=== PATIENT | female | born 2005 | race Caucasian/White ===

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

== ENCOUNTER 2024-04-02 11:27 | Emergency (ER) | payer BC, SELFPAY ==
[2024-04-02 11:58] VITALS: BP 112/73; PULSE 117; RESP 14; TEMP 36.7; O2SAT 98
[2024-04-02 12:28] VITALS: BP 112/73; PULSE 117; RESP 14; TEMP 36.7; O2SAT 98
[2024-04-02] MEDS: Ondansetron O.D.T. 4 MG TABEF 8 MG PO (12:30)
[2024-04-02] MEDS: Dexamethasone 4 MG TAB 8 MG PO (12:30)
[2024-04-02] MEDS: Acetaminophen 500 MG TAB 1000 MG PO (12:31)
[2024-04-02 12:38] VITALS: BP 115/62; PULSE 93; RESP 15; O2SAT 100
--- NOTE | 2024-04-02 16:29 | W.ED.GENAD ---
Discharge Plan Disposition Patient Disposition: Home Condition: Stable Discharge Details Clinical Impression: Strep pharyngitis Primary Care Provider: Alonzo Rodriguez ED Provider: Harmeet Velazquez Home Meds and New Rx's Prescriptions: New cephalexin 500 mg capsule 500 mg PO BID 10 Days Qty: 20 0RF No Action triamcinolone acetonide 0.1 % cream 1 applic topical BID Qty: 30 0RF Kyleena 17.5 mcg/24 hrs (5 yrs) 19.5 mg intrauterine device 1 device intrauterine ONCE Qty: 1 0RF Rx Instructions: as a single dose acetaminophen 500 mg Tablet 1,000 mg PO Q6H PRN Discharge Instructions Instructions: Strep Throat ED Additional Instructions: Your strep throat test today is positive. A prescription for antibiotics has been sent to the pharmacy. Please take the complete dose of this medication. Return if you have worsening symptoms, drooling, difficulty breathing, swallowing or change in voice. HPI General Date/Time Provider Initiated Documentation: 04/02/24 12:05. Limitations to Documentation: no limitations. Information obtained by: patient. HPI Narrative: 18-year-old female without significant past medical history presents for evaluation of sore throat. She reports that symptoms have been ongoing for 2 days. Subjective fever at home. No associated other symptoms of runny nose or cough. Did have some nausea this morning and spit up some bile. She reports throat hurts worse with swallowing, no difficulty with swallowing, no significant change in voice or difficulty breathing. Related Data Home Medications ?Medication ?Instructions ?Recorded ?Confirmed levonorgestrel 17.5 mcg/24 hr (up 1 device intrauterine ONCE #1 ea 05/13/21 04/02/24 to 5 yrs) 19.5mg intrauterine device (Kyleena) acetaminophen 500 mg tablet 1,000 mg PO Q6H PRN 11/07/21 04/02/24 triamcinolone acetonide 0.1 % 1 applic topical BID #30 grams 12/12/23 04/02/24 topical cream cephalexin 500 mg capsule 500 mg PO BID 10 days #20 caps 04/02/24 Previous Rx's ?Medication ?Instructions ?Recorded levonorgestrel 17.5 mcg/24 hr (up 1 device intrauterine ONCE #1 ea 05/13/21 to 5 yrs) 19.5mg intrauterine device (Kyleena) triamcinolone acetonide 0.1 % 1 applic topical BID #30 grams 12/12/23 topical cream cephalexin 500 mg capsule 500 mg PO BID 10 days #20 caps 04/02/24 Allergies Allergy/AdvReac Type Severity Reaction Status Date / Time amoxicillin (Amoxicillin) Allergy Mild rash/unknown/family Verified 04/02/24 12:02 hx General Stated Complaint: Sorethroat TRE: 4 Exam Narrative Exam Narrative: Review of Systems: All systems reviewed & are unremarkable except as noted in HPI and below Well-developed, no acute distress Afebrile Cervical adenopathy noted Tonsillar enlargement bilaterally with erythematous tonsils, no appreciable exudates noted RRR Unlabored respiratory effort clear bilaterally Course Vital Signs Vital signs: Vital Signs Temperature 36.7 C 04/02/24 11:58 Pulse 117 H 04/02/24 11:58 Respiratory Rate 14 04/02/24 11:58 Blood Pressure 112/73 04/02/24 11:58 Pulse Oximetry 98 04/02/24 11:58 Temperature 36.7 C 04/02/24 12:28 Temperature Source Oral 04/02/24 12:28 Pulse 93 H 04/02/24 12:38 Respiratory Rate 15 04/02/24 12:38 Blood Pressure 115/62 04/02/24 12:38 Blood Pressure Position Sitting 04/02/24 12:28 Pulse Oximetry 100 04/02/24 12:38 Oxygen Delivery Method Room Air 04/02/24 12:28 Oxygen Flow Rate 0 04/02/24 12:28 Pain Level 7 04/02/24 12:28 Lab/Test Results Lab/Test Results: POC Strep Test-ABILIO(Rapid) Start: 04/02/24 12:06 Freq: .Rapid Strep Test Status: Active Protocol: Document 04/02/24 12:15 TAYLOR (Rec: 04/02/24 12:15 TAYLOR [id number]) Strep test-ABILIO(Rapid)-POC POC-Strep test-ABILIO (Rapid) Positive POC-Strep test-ABILIO (Rapid) Positive Medical Decision Making Emergent evaluation of sore throat. 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 [id number] strep test is positive. Patient has an documented allergy to amoxicillin so we will treat with cephalexin. Also given Zofran and a dose of steroid in the emergency department. Return precautions advised. Recommend follow-up with PCP as needed. Quality:SDOH Health Related Social Needs: Health related social needs details N/A PFSH All Active Problems (Updated 04/02/24 @ 12:17 by Harmeet Velazquez MD) Strep pharyngitis (Acute) Thoughts of self harm (Acute) Anxiety (Chronic) Allergic rhinitis (Acute) Medical History (Updated 04/02/24 @ 12:17 by Harmeet Velazquez MD) IUD (intrauterine device) in place 04/2021. Kyleena. Contraception 12/2019. Nexplanon inserted. 04/2020. Nexplanon removed. OCPs started. 04/2021. OCP stopped. Kyleena IUD inserted Abnormal uterine bleeding (AUB) 2mo after insertion 6w of daily bleeding. Acute otitis media of left ear in pediatric patient Strep throat has frequently over the years Family History Mother Diabetes Asthma Depression Father Essential hypertension Asthma Hyperlipidemia Sister Asthma Substance use disorder Depression Brother Depression Maternal Grandmother Diabetes Maternal Grandfather Alcohol use disorder Cancer Paternal Grandfather Diabetes Heart disease Hyperlipidemia Essential hypertension Stroke Social History (Updated 10/05/23 @ 12:09 by Lashawn Toro) Smoking/Tobacco Use Status: Never Second Hand Exposure: Yes Smoking risk assessment performed?: Yes Alcohol Intake: never Drug use: Socially Substance use type: marijuana Details: marijuana use monthly, usually edibles Adopted: No Caregiver/Support person: No Foster care: No Household members: significant other Housing: house Number of Children: 0 Communication Needs: Corrective Lenses Education Level: high school Details: 12th grade Do you need help understanding health information?: Never 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 Pets and animals: Yes (4 dogs an 4 cats) Pets and animals: cat(s) and dog(s) Sexually active: Yes Do you think of yourself as: straight/heterosexual Current gender identity: female What is your relationship status?: living with partner How often do you talk on the phone with friends or family?: three or more times per week How often do you get together with friends or relatives?: three or more times per week Panel score (0-1 are the most socially isolated patients): 2 What type of physical activity do you participate in: walking and running Duration: 60-90 minutes/day Frequency: daily Special salma needs: No Seatbelt use: always Helmet use: Yes Drive intox or ride w/intox drop 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
== END 2024-04-02 12:39 | disposition home or self-care (01) ==
PROVIDERS: Emergency Provider Emergency Medicine; PCP Nurse Practitioner Family
DX: J02.0 Streptococcal pharyngitis (principal)
CPT/HCPCS: 87880; 99283; J8540

== ENCOUNTER 2024-07-15 15:30 | Outpatient (CLI) | payer BC, SELFPAY ==
[2024-07-16 03:03] LABS: HIV-1/2 Ag & Ab Screen Negative (Negative)
[2024-07-16 03:13] LABS: Hepatitis C Ab w Rflx HCV PCR Negative (Negative)
[2024-07-17 19:38] LABS: Syphilis IgG w/Reflex Nonreactive (Nonreactive)
== END 2024-07-15 15:31 | disposition home or self-care (01) ==
LOC: LBO 15:31
PROVIDERS: PCP Nurse Practitioner Family; Visit Provider Nurse Practitioner Women's Health
DX: Z11.3 Encounter for screening for infections with a predominantly sexual mode of transmission (principal)
CPT/HCPCS: 36415; 86803; 87389; 86780

== ENCOUNTER 2024-07-15 15:34 | Outpatient (REF) | payer BC, SELFPAY ==
[2024-07-17 12:25] LABS: Chlamydia Result Negative (Negative); GC Result Negative (Negative)
== END 2024-07-15 15:35 | disposition home or self-care (01) ==
LOC: LBN 15:34
PROVIDERS: PCP Nurse Practitioner Family; Visit Provider Nurse Practitioner Women's Health
DX: Z11.3 Encounter for screening for infections with a predominantly sexual mode of transmission (principal)
CPT/HCPCS: 87491; 87591

== ENCOUNTER 2024-08-18 13:50 | Emergency (ER) | payer BC, SELFPAY ==
[2024-08-18 13:52] VITALS: BP 104/71; PULSE 70; RESP 16; TEMP 36.6; O2SAT 98
--- NOTE | 2024-08-18 13:54 | ED.GENADUL_ITS ---
Discharge Plan Disposition Patient Disposition: Home Discharge Details Clinical Impression: Acute tonsillitis Primary Care Provider: Alonzo Rodriguez ED Provider: Domingo Clark Home Meds and New Rx's Prescriptions: Continued triamcinolone acetonide 0.1 % cream 1 applic topical BID Qty: 30 0RF Kyleena 17.5 mcg/24 hrs (5 yrs) 19.5 mg intrauterine device 1 device intrauterine ONCE Qty: 1 0RF Rx Instructions: as a single dose acetaminophen 500 mg Tablet 1,000 mg PO Q6H PRN Discontinued prednisone 20 mg tablet 40 mg PO DAILY Patient Comments: TAKE 2 TABLETS BY MOUTH DAILY FOR 5 DAYS Discharge Instructions Additional Instructions: You were seen in the emergency department for your sore throat. Your strep swab was negative. This will reflex to culture. The additional sample that we sent will also result in the next several days. As we discussed if you develop worsening pain cannot eat or drink or do not urinate at least once every 8 hours please return to the emergency department. A referral has been placed for ENT. Please discontinue taking the prednisone as you received dexamethasone in the emergency department. For your pain please take medications as follows: 1. Take acetaminophen (Tylenol), 1,000 mg (two 500 mg tabs) every 6 hours Starting on 08/20 you may begin taking this additional anti-inflammatory medication: 2. Take ibuprofen (Advil), 400 mg every 6 hours. Discharge Data Discharge Date/Time-TO BE ENTERED AT DEPARTURE: 08/18/24 14:39 HPI General Date/Time Provider Initiated Documentation: 08/18/24 13:54 . HPI Narrative: MDM This is an overall well-appearing afebrile and not tachycardic 18-year-old femal e with significant tonsillitis and swab negative for strep for which patient received dexamethasone discharged with expectant outpatient management. Patient was sexually active with a new partner several weeks ago and engaged in oral sex and as result we will swab for GC and chlamydia. This additional history was obtained with the patient's mother outside of the room and patient's nurse Cora as a mixing supervisor. I considered mono however given significant tonsillar exudates and symptoms that began just several days ago I did not obtain a Monospot test. I offered COVID swab however I did not think that this would record changer tester and patient and her mother declined. Good range of motion in neck so I am not suspicious for bacterial tracheitis. Handling secretions so doubt epiglottitis. No pain out of proportion to suggest necrotizing soft tissue infection. Patient has not been vomiting to suggest subdural empyema. Uvula midline making my suspicion low for peritonsillar abscess. Patient handling secretions and well-hydrated so I did not feel she requires IV line placement. She received dexamethasone and I advised her to discontinue her prednisone. I also advised her to take acetaminophen. We discussed that she should return if she did not urinate at least once every 8 hours while awake if she could not eat or drink as result of sore throat or if she had any other concerns. I have asked health community services officer Antonieta to place an outpatient referral to ENT given recurrent episodes of tonsillitis. HPI This is a patient with a history of recurrent tonsillitis presenting with a sore throat. The patient has been experiencing a sore throat for the past 3 days. This is a recurring issue, typically managed with dexamethasone, which usually provides relief within a couple of days. However, this time, the usual treatment has not been effective. The patient sought help from an urgent care center where prednisone was prescribed for 3 days, but after 2 days of use, there has been no improvement. The patient also takes ibuprofen along with the steroids to manage the pain. The patient reports difficulty swallowing and speaking, and the condition is not improving as it usually does. The patient has been experiencing tonsillitis approximately once a month for the past few years. A strep test conducted at the urgent care center on 08/17/2024 was negative. The patient had a fever last night, with temperatures ranging between 100 and 101 degrees, and reports no relief from the swelling. The patient reports no vomiting or cough. The patient reports difficulty breathing due to the throat swelling but has no chest-related issues. The patient is otherwise healthy and does not take any daily medications. The patient received all vaccines during childhood. The [facility] ent reports no recent contact with sick individuals. Exam General: Well-appearing in no acute distress speaking in complete sentences. Head: Normocephalic, atraumatic. Eye: Extraocular eye movements intact. No conjunctival injection. No scleral icterus. Ear, nose, mouth, throat: Bilateral tonsillar exudates with tonsillitis. Uvula midline. Moist mucous membranes. Normal voice, handling secretions normally. Neck: Trachea midline. Good range of motion in neck. Cardiovascular: Well-perfused distal extremities. Respiratory: Nonlabored respiration. Gastrointestinal: Nondistended abdomen. Musculoskeletal: No edema. Moving all 4 extremities spontaneously. Skin: Normal for age and race, grossly normal temperature and turgor. No acute rash. Neurologic: Alert and appropriate, no apparent acute deficits. Psychiatric: Mood and manner are appropriate. Grooming and personal hygiene are appropriate. Related Data Home Medications ?Medication ?Instructions ?Recorded ?Confirmed levonorgestrel 17.5 mcg/24 hr (up 1 device intrauterin e ONCE #1 ea 05/13/21 08/18/24 to 5 yrs) 19.5mg intrauterine device (Kyleena) acetaminophen 500 mg tablet 1,000 mg PO Q6H PRN 08/18/24 triamcinolone acetonide 0.1 % 1 applic topical BID #30 grams 12/12/23 08/18/24 topical cream Previous Rx's ?Medication ?Instructions ?Recorded levonorgestrel 17.5 mcg/24 hr (up 1 device intrauterin e ONCE #1 ea 05/13/21 to 5 yrs) 19.5mg intrauterine device (Kyleena) triamcinolone acetonide 0.1 % 1 applic topical BID #30 grams 12/12/23 topical cream Allergies Allergy/AdvReac Type Severity Reaction Status Date / Time amoxicillin (Amoxicillin) Allergy Mild rash/unknown/family Verified 08/18/24 13:55 hx General TRE: 4 Medical Decision Making Quality:SDOH Health Related Social Needs: Health related social needs details N/A PFSH All Active Problems (Updated 08/18/24 @ 14:17 by Domingo Clark MD) Acute tonsillitis (Acute) Thoughts of self harm (Acute) Anxiety (Chronic) Allergic rhinitis (Acute) Medical History (Updated 08/18/24 @ 14:17 by Domingo Clark MD) IUD (intrauterine device) in place 04/2021. Kyleena. Contraception 12/2019. Nexplanon inserted. 04/2020. Nexplanon removed. OCPs started. 04/2021. OCP stopped. Kyleena IUD inserted Abnormal uterine bleeding (AUB) 2mo after insertion 6w of daily bleeding. Acute otitis media of left ear in pediatric patient Strep throat has frequently over the years Family History Mother Diabetes Asthma Depression Father Essential hypertension Asthma Hyperlipidemia Sister Asthma Substance use disorder Depression Brother Depression Maternal Grandmother Diabetes Maternal Grandfather Alcohol use disorder Cancer Paternal Grandfather Diabetes Heart disease Hyperlipidemia Essential hypertension Stroke Social History (Updated 10/05/23 @ 12:09 by Lashawn Toro) Smoking/Tobacco Use Status: Never Second Hand Exposure: Yes Smoking risk assessment performed?: Yes Alcohol Intake: never Drug use: Socially Substance use type: marijuana Details: marijuana use monthly, usually edibles Adopted: No Caregiver/Support person: No Foster care: No Household members: significant other Housing: house Number of Children: 0 Communication Needs: Corrective Lenses Education Level: high school Details: [employer] 12th grade Do you need help understanding health information?: Never 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 Pets and animals: Yes (4 dogs an 4 cats) Pets and animals: cat(s) and dog(s) Sexually active: Yes Do you think of yourself as: straight/heterosexual Current gender identity: female What is your relationship status?: living with partner How often do you talk on the phone with friends or family?: three or more times per week How often do you get together with friends or relatives?: three or more times per week Panel score (0-1 are the most socially isolated patients): 2 What type of physical activity do you participate in: walking and running Duration: 60-90 minutes/day Frequency: daily Special salma needs: No Seatbelt use: always Helmet use: Yes Drive intox or ride w/intox race car driver: No Working smoke detector in home: Yes Carbon monox detector in home: Yes Firearms in home: Yes Firearms unloaded and locked: Yes Do you feel safe at home: Yes Do you feel safe in your relationship?: Yes Victim of physical abuse: No Victim of emotional abuse: No Victim of sexual abuse: No Would you like helpful sources: No Female Reproductive History Menstrual control method: progestin IUCD (Kyleena) History History 0 Para Hx # Term Pregnancies Multiple births Hx # Pregnancies Ectopic pregnancies AB induced Hx Number of Living Children AB spontaneous
[2024-08-18 13:56] VITALS: BP 104/71; PULSE 70; RESP 16; TEMP 36.6; O2SAT 98
[2024-08-18] MEDS: Dexamethasone 10 MG/ML VIAL IV (14:31)
[2024-08-20 11:41] LABS: Chlamydia Result Negative (Negative); GC Result Negative (Negative)
== END 2024-08-18 14:39 | disposition home or self-care (01) ==
PROVIDERS: Emergency Provider Emergency Medicine; PCP Nurse Practitioner Family
DX: J03.90 Acute tonsillitis, unspecified (principal)
CPT/HCPCS: 99283; 99284; 96374; 87880; 87491; 87591; 87081; J1100

== ENCOUNTER 2024-08-20 16:28 | Emergency (ER) | payer BC, SELFPAY ==
[2024-08-20 16:38] VITALS: BP 108/72; PULSE 86; RESP 16; TEMP 36.5; O2SAT 99
--- NOTE | 2024-08-20 17:10 | W.ED.GENAD ---
Discharge Plan Disposition Patient Disposition: Home Condition: Stable Discharge Details Clinical Impression: Acute tonsillitis Primary Care Provider: Alonzo Rodriguez ED Provider: Xuan Perez Home Meds and New Rx's Prescriptions: New prednisolone 15 mg/5 mL solution 60 mg PO DAILY 5 Days Qty: 100 0RF No Action triamcinolone acetonide 0.1 % cream 1 applic topical BID Qty: 30 0RF Kyleena 17.5 mcg/24 hrs (5 yrs) 19.5 mg intrauterine device 1 device intrauterine ONCE Qty: 1 0RF Rx Instructions: as a single dose acetaminophen 500 mg Tablet 1,000 mg PO Q6H PRN Discharge Instructions Instructions: Sore Throat, Adult ED Additional Instructions: Please continue taking [id number] Tylenol for pain relief. Do a trial of ibuprofen, low-dose for additional relief while on the steroids and once steroids are done take the appropriate dose as needed. Please follow-up with the staff research associate. Prescription for steroid has been sent to your preferred pharmacy. In the meantime if you do get worse or develop any new or concerning symptoms please return to the emergency department for reevaluation. Discharge Data Discharge Date/Time-TO BE ENTERED AT DEPARTURE: 08/20/24 17:20 HPI General Date/Time Provider Initiated Documentation: 08/20/24 16:39. HPI Narrative: The patient is a 18-year-old female with a history of recurrent pharyngitis since childhood who comes the emergency department for worsening sore throat. History is obtained from the patient and her mother who reports that the patient had another bout of sore throat just a few days ago. Reports he was evaluated here in this emergency department and had swabs all which came back negative. Reports she did receive steroids and it helped for a while. Reports that when she ran out throat started hurting again. Admits that she has had fever with this as well. Reports he been taking [id number] Tylenol and was told to hold off on the ibuprofen while on steroids. Reports that she last took wkoq-blc-jxiltog medication around 9:00 this morning. Reports it hurts to swallow but denies vomiting. Reports that her lymph nodes are very swollen and was having hard time breathing so return to the emergency department for an evaluation. Related Data Home Medications ?Medication ?Instructions ?Recorded ?Confirmed levonorgestrel 17.5 mcg/24 hr (up 1 device intrauterine ONCE #1 ea 05/13/21 08/20/24 to 5 yrs) 19.5mg intrauterine device (Kyleena) acetaminophen 500 mg tablet 1,000 mg PO Q6H PRN 11/07/21 08/20/24 triamcinolone acetonide 0.1 % 1 applic topical BID #30 grams 12/12/23 08/20/24 topical cream prednisolone 15 mg/5 mL oral 60 mg (20 mL) PO DAILY 5 days #100 08/20/24 solution mL Previous Rx's ?Medication ?Instructions ?Recorded levonorgestrel 17.5 mcg/24 hr (up 1 device intrauterine ONCE #1 ea 05/13/21 to 5 yrs) 19.5mg intrauterine device (Kyleena) triamcinolone acetonide 0.1 % 1 applic topical BID #30 grams 12/12/23 topical cream prednisolone 15 mg/5 mL oral 60 mg (20 mL) PO DAILY 5 days #100 08/20/24 solution mL Allergies Allergy/AdvReac Type Severity Reaction Status Date / Time amoxicillin (Amoxicillin) Allergy Mild rash/unknown/family Verified 08/20/24 16:44 hx General Stated Complaint: Sorethroat TRE: 2 Review of Systems Narrative: Review of systems are negative except as mentioned. Exam Narrative Exam Narrative: General appearance: The patient is alert, has no immediate need for airway protection and no signs of toxicity. HEENT: Oral mucosal membranes are moist. Patient has tonsillar erythema with exudates. She has no uvular deviation. She has no fullness to the soft or hard palate or the floor of the mouth. She has no trismus. Neck: The patient has cervical lymphadenopathy without submandibular fullness. Respiratory: There are no retractions. Lungs are clear to auscultation. Cardiovascular: Regular in rate and rhythm. Radial pulses are intact and equal. Gastrointestinal: The abdomen is soft and nondistended with normal bowel sounds. Nontender to palpation throughout. Neurological: The patient is alert, awake and oriented x 3. Skin: Warm and dry. Course Vital Signs Vital signs: Vital Signs Temperature 36.5 C 08/20/24 16:38 Pulse 86 08/20/24 16:38 Respiratory Rate 16 08/20/24 16:38 Blood Pressure 108/72 08/20/24 16:38 Pulse Oximetry 99 07/08/25 16:38 Temperature 36.5 C 07/08/25 16:38 Temperature Source Tympanic 08/20/24 16:38 Pulse 86 08/20/24 16:38 Respiratory Rate 16 08/20/24 16:38 Blood Pressure 108/72 08/20/24 16:38 Blood Pressure Position Sitting 08/20/24 16:38 Pulse Oximetry 99 08/20/24 16:38 Oxygen Delivery Method Room Air 08/20/24 16:38 Oxygen Flow Rate 0 08/20/24 16:38 Pain Level 7 08/20/24 16:38 Medical Decision Making The patient had relief following the steroids. Patient will get another dose of steroid now and a prescription for a longer course to her preferred pharmacy in liquid form. I asked her mother to give her Tylenol and a trial of low-dose ibuprofen to help with her throat pain and when she is done with steroids to start taking the ibuprofen as indicated. I asked that they follow-up with her staff research associate also and call the office in the morning to see if they can make a sooner appointment and urged the patient to return to the emergency department immediately with any worsening symptoms or any other concerns. Quality:SDOH Health Related Social Needs: Health related social needs details N/A PFSH All Active Problems (Updated 08/20/24 @ 17:10 by Xuan Perez DO) Acute tonsillitis (Acute) Thoughts of self harm (Acute) Anxiety (Chronic) Allergic rhinitis (Acute) Medical History (Updated 08/20/24 @ 17:10 by Xuan Perez DO) IUD (intrauterine device) in place 04/2021. Kyleena. Contraception 12/2019. Nexplanon inserted. 04/2020. Nexplanon removed. OCPs started. 04/2021. OCP stopped. Kyleena IUD inserted Abnormal uterine bleeding (AUB) 2mo after insertion 6w of daily bleeding. Acute otitis media of left ear in pediatric patient Strep throat has frequently over the years Family History Mother Diabetes Asthma Depression Father Essential hypertension Asthma Hyperlipidemia Sister Asthma Substance use disorder Depression Brother Depression Maternal Grandmother Diabetes Maternal Grandfather Alcohol use disorder Cancer Paternal Grandfather Diabetes Heart disease Hyperlipidemia Essential hypertension Stroke Social History (Updated 10/05/23 @ 12:09 by Lashawn Singh Smoking/Tobacco Use Status: Current-Occasional Tobacco Type: e-cigarettes Second Hand Exposure: Yes Smoking risk assessment performed?: Yes Alcohol Intake: current Alcohol Intake frequency: a few times a week Drug use: Socially Substance use type: marijuana Details: marijuana use monthly, usually edibles Adopted: No Caregiver/Support person: No Foster care: No Household members: significant other Housing: house Number of Children: 0 Communication Needs: Corrective Lenses Education Level: high school Details: 12th grade Do you need help understanding health information?: Never current occupation: [employer] Pets and animals: Yes (4 dogs an 4 cats) Pets and animals: cat(s) and dog(s) Sexually active: Yes Do you think of yourself as: straight/heterosexual Current gender identity: female What is your relationship status?: living with partner How often do you talk on the phone with friends or family?: three or more times per week How often do you get together with friends or relatives?: three or more times per week Panel score (0-1 are the most socially isolated patients): 2 What type of physical activity do you participate in: walking and running Duration: 60-90 minutes/day Frequency: daily Special salma needs: No Seatbelt use: always Helmet use: Yes Drive intox or ride w/intox home delivery driver: No Working smoke detector in home: Yes Carbon monox detector in home: Yes Firearms in home: Yes Firearms unloaded and locked: Yes Do you feel safe at home: Yes Do you feel safe in your relationship?: Yes Victim of physical abuse: No Victim of emotional abuse: No Victim of sexual abuse: No Would you like helpful sources: No Female Reproductive History Menstrual control method: progestin IUCD (Kyleena) History History 0 Para Hx # Term Pregnancies Multiple births Hx # Pregnancies Ectopic pregnancies AB induced Hx Number of Living Children AB spontaneous
[2024-08-20] MEDS: Dexamethasone 1 MG TAB 10 MG PO (17:16)
[2024-08-20 17:17] VITALS: O2SAT 97
== END 2024-08-20 17:20 | disposition home or self-care (01) ==
PROVIDERS: Emergency Provider Emergency Medicine; PCP Nurse Practitioner Family
DX: J03.90 Acute tonsillitis, unspecified (principal)
CPT/HCPCS: 99284; 99283; J8540

== ENCOUNTER 2024-08-22 16:13 | Outpatient (REF) | payer BC, SELFPAY ==
[2024-08-22 20:58] LABS: Abs Immature Grans 0.20 10^3/uL (0.0-0.06); HCT 41.9 % (36.0-46.0); HGB 13.9 g/dL (11.2-15.7); Immature Grans % 1.2 %; MCH 29.8 pg (27.0-33.0); MCHC 33.2 % (32.0-36.0); MCV 90 fL (80-95); MPV 10.4 fL (8.0-11.0); Platelet Count 296 10^3/uL (130-400); RBC 4.67 10^6/uL (3.93-5.22); RDW 11.8 % (11.7-14.6); RDW-SD 38.5 fL; WBC 16.88 10^3/uL (4.4-10.8)
[2024-08-22 21:01] LABS: ALT 21 U/L (14-59); AST 8 U/L (15-37); Albumin 3.9 g/dL (3.4-5.0); Alkaline Phosphatase 65 U/L (46-116); Anion Gap 9.9 mmol/L (3-11); BUN 11 mg/dL (7-18); Bilirubin, Total 0.2 mg/dL (0.2-1.0); CO2 28.1 mmol/L (21.0-32.0); Calcium 9.9 mg/dL (8.5-10.1); Chloride 104 mmol/L (98-107); Estimated GFR 132.52 (mL/min/1.73m2); Glucose 128 mg/dL (74-106); Potassium 4.4 mmol/L (3.5-5.1); Sodium 142 mmol/L (136-145); Total Protein 7.9 g/dL (6.4-8.2)
[2024-08-26 11:39] LABS: VCA IgG Positive (Negative); VCA IgM Negative (Negative)
== END 2024-08-22 16:14 | disposition home or self-care (01) ==
LOC: LBN 16:13
PROVIDERS: PCP Nurse Practitioner Family; Visit Provider Nurse Practitioner Family
DX: J02.9 Acute pharyngitis, unspecified (principal)
CPT/HCPCS: 80053; 85025; 86644; 86664; 86665

== ENCOUNTER 2024-08-27 10:42 | Inpatient (IN) | payer BC, SELFPAY ==
[2024-08-27] VITALS (63 sets, daily range): BP systolic 94–131; BP diastolic 52–88; PULSE 75–123; RESP 13–30; TEMP 36.7; O2SAT 95–100
--- NOTE | 2024-08-27 11:39 | W.ED.GENAD ---
Discharge Plan Disposition Patient Disposition: Admit to [facility] Condition: Stable Discharge Details Clinical Impression: Abscess, peritonsillar Primary Care Provider: Alonzo Rodriguez ED Provider: Nellie Byers Home Meds and New Rx's Prescriptions: No Action triamcinolone acetonide 0.1 % cream 1 applic topical BID Qty: 30 0RF Kyleena 17.5 mcg/24 hrs (5 yrs) 19.5 mg intrauterine device 1 device intrauterine ONCE Qty: 1 0RF Rx Instructions: as a single dose levofloxacin 750 mg tablet 750 mg PO DAILY Qty: 7 0RF prednisone 20 mg tablet 20 mg PO DAILY Qty: 5 0RF acetaminophen 500 mg Tablet 1,000 mg PO Q6H PRN HPI General Date/Time Provider Initiated Documentation: 08/27/24 11:08. HPI Narrative: This is a 18-year-old female patient who is now on day 13 of tonsillitis, initially treated with steroids, now status post 5 days of Levaquin, presenting for evaluation of worsening of her posterior pharyngeal pain, right greater than left-sided swelling, and a concern for peritonsillar abscess. The patient was seen at urgent care today, just finished her steroid course 1 to 2 days ago, and has had significant worsening of her discomfort. She has mild trismus, pain with speaking, has been able to swallow and manage secretions but has had decreased oral intake today. She has been utilizing Tylenol and ibuprofen as needed for pain. She has been referred to ear nose and throat, but at this time was recommended to go to the emergency department given her failure to improve with outpatient management. Related Data Home Medications ?Medication ?Instructions ?Recorded ?Confirmed levonorgestrel 17.5 mcg/24 hr (up 1 device intrauterine ONCE #1 ea 05/13/21 08/27/24 to 5 yrs) 19.5mg intrauterine device (Kyleena) acetaminophen 500 mg tablet 1,000 mg PO Q6H PRN 11/07/21 08/27/24 triamcinolone acetonide 0.1 % 1 applic topical BID #30 grams 12/12/23 08/27/24 topical cream levofloxacin 750 mg tablet 750 mg PO DAILY #7 tabs 08/22/24 08/27/24 prednisone 20 mg tablet 20 mg PO DAILY #5 tabs 08/23/24 08/27/24 Previous Rx's ?Medication ?Instructions ?Recorded levonorgestrel 17.5 mcg/24 hr (up 1 device intrauterine ONCE #1 ea 05/13/21 to 5 yrs) 19.5mg intrauterine device (Kyleena) triamcinolone acetonide 0.1 % 1 applic topical BID #30 grams 12/12/23 topical cream levofloxacin 750 mg tablet 750 mg PO DAILY #7 tabs 08/22/24 prednisone 20 mg tablet 20 mg PO DAILY #5 tabs 08/23/24 Allergies Allergy/AdvReac Type Severity Reaction Status Date / Time amoxicillin (Amoxicillin) Allergy Mild rash/unknown/family Verified 08/27/24 11:01 hx General Stated Complaint: Sorethroat TRE: 3 Exam Narrative Exam Narrative: Gen: Awake and alert, in no apparent distress HEENT: Non-icteric sclera, posterior pharynx with significant right peritonsillar swelling and large bilateral tonsils, erythematous, no significant exudative findings. She has mild trismus but I am able to fully visualize the posterior pharynx. Neck: Supple, full range of motion, right greater than left sided tender lymphadenopathy Lungs: No apparent respiratory distress, normal respiratory effort. The patient is without stridor, wheezing, or other focal lung findings CV: Appears well perfused, heart with regular rate and rhythm, strong distal pulses Abdomen: Non-distended MSK: Moves 4 extremities without apparent limitation in ROM Skin: Visualized skin without rashes, cyanosis. Neuro: Normal Gait, no obvious focal deficits or facial asymmetry. Psych: Appropriate for situation. Course Vital Signs Vital signs: Vital Signs Temperature 36.7 C 08/27/24 11:01 Pulse 94 H 08/27/24 11:01 Respiratory Rate 20 08/27/24 11:01 Blood Pressure 112/77 08/27/24 11:01 Pulse Oximetry 97 08/27/24 11:01 Temperature 36.7 C 08/27/24 11:01 Temperature Source Oral 08/27/24 11:01 Pulse 94 H 08/27/24 11:01 Respiratory Rate 20 08/27/24 11:01 Blood Pressure 112/77 08/27/24 11:01 Blood Pressure Position Sitting 08/27/24 11:01 Pulse Oximetry 97 08/27/24 11:01 Oxygen Delivery Method Room Air 08/27/24 11:01 Oxygen Flow Rate 0 08/27/24 11:01 Pain Level 10 08/27/24 11:01 Procedure Abscess Drainage Date of Procedure: 08/27/24 Time of Procedure: 15:15 Provider that performed the procedure: Nellie Byers Patient Consented: Written Location of Exam: Oral Indication: Abscess. Local anesthetic: Lidocaine 2% and with epi, Amount of Local Anesthetic Used(mL): 5. Sterility: Non Sterile. Procedure Prep: Hand hygiene, Surgical Mask and 11 blade. Technique used incised with blade and needle aspiration. Amount of fluid expressed(mL): 5. Packing: None. Outcome: Sucessful Procedure Description/Note: Following written informed consent, the patient's right posterior pharynx and tonsil were anesthetized first with atomized lidocaine with epinephrine topically, followed by approximately 1 mL injected lidocaine at the superolateral aspect of the peritonsillar abscess/swelling. An 18-gauge needle with safety cap cut to 1 cm was advanced into the area of fluctuance, with approximately 5 mL of purulent/bloody drainage noted. Purulent drainage was sent for wound culture. After this aspiration, the area of maximal purulence was opened with an 11 blade scalpel stab incision. The patient was able to manage her secretions and spit into the suction canister, immediately had relief of the pressure and pain. She did not have any vital signs abnormality during this procedure, and did not require any acute airway interventions. Complications: None Medical Decision Making This is a 18-year-old female patient presenting for evaluation of right greater than left-sided tonsillar swelling in the setting of 13 days of tonsillitis. Differential includes but is not limited to peritonsillar abscess, retropharyngeal abscess, certainly considered pharyngitis, patient was negative for strep, and had evidence of a prior mononucleosis infection on her previous laboratory testing. However, given the significant swelling and failure to improve in the outpatient I am most suspicious for a bacterial pharyngitis. She has a soft floor of her mouth and is protecting her airway, and have a lower concern for Ludewig's angina. She has no significant hemodynamic instability, tachycardia, or fever at this time to increase my concern for sepsis or bacteremia. We will obtain a CT neck with contrast, as well as laboratory studies to include CBC, CMP, magnesium, and provide the patient with a dose of Toradol for symptomatic management. -I reviewed the patient's laboratory studies, which do show a leukocytosis to 21.8, no anemia or thrombocytopenia. The chemistry panel is without significant electrolyte derangements, evidence of kidney dysfunction or liver disease. CT reviewed by myself and discussed with the radiologist. The patient has bilateral peritonsillar abscesses, right greater than left, with the right measuring 4 x 2 cm, left 1 x 0.5. The peritonsillar abscess on the right side was drained as noted above, both aspiration and stab incision with an 11 blade scalpel were performed to ensure adequate drainage and minimize the chance for reaccumulation. I did reach out to Dr. Lmia with ear nose and throat, who had recommended that procedure as well as broadening of her antibiotic coverage to include clindamycin. He recommends a repeat dose of Decadron and admission to the hospital for intravenous antibiosis given her failure in the outpatient environment to improve. The patient has already taken her Levaquin today so I held on that dose, but she received fluids, clindamycin, and Dex. After the procedure she had significant improvement in her sensation of pressure and pain. I reached out to the hospitalist team who has graciously accepted this patient for admission to this hospital for ongoing antibiosis. Patient remained hemodynamically appropriate and protecting her airway while under my care. Transferred to the hospitalist team without incident. Nellie Byers MD Quality:SDOH Health Related Social Needs: Health related social needs details N/A PFSH All Active Problems (Updated 08/27/24 @ 16:08 by Nellie Byers MD) Abscess, peritonsillar (Acute) Acute tonsillitis (Acute) Thoughts of self harm (Acute) Anxiety (Chronic) Allergic rhinitis (Acute) Medical History (Updated 08/27/24 @ 16:08 by Nellie Byers MD) IUD (intrauterine device) in place 04/2021. Kyleena. Contraception 12/2019. Nexplanon inserted. 04/2020. Nexplanon removed. OCPs started. 04/2021. OCP stopped. Kyleena IUD inserted Abnormal uterine bleeding (AUB) 2mo after insertion 6w of daily bleeding. Acute otitis media of left ear in pediatric patient Strep throat has frequently over the years Family History Mother Diabetes Asthma Depression Father Essential hypertension Asthma Hyperlipidemia Sister Asthma Substance use disorder Depression Brother Depression Maternal Grandmother Diabetes Maternal Grandfather Alcohol use disorder Cancer Paternal Grandfather Diabetes Heart disease Hyperlipidemia Essential hypertension Stroke Social History (Updated 10/05/23 @ 12:09 by Lashawn Toro) Smoking/Tobacco Use Status: Current-Occasional Tobacco Type: e-cigarettes Second Hand Exposure: Yes Smoking risk assessment performed?: Yes Alcohol Intake: current Alcohol Intake frequency: a few times a week Drug use: Socially Substance use type: marijuana Details: marijuana use monthly, usually edibles Adopted: No Caregiver/Support person: No Foster care: No Household members: significant other Housing: house Number of Children: 0 Communication Needs: Corrective Lenses Education Level: high school Details: [employer] 12th grade Do you need help understanding health information?: Never 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 Pets and animals: Yes (4 dogs an 4 cats) Pets and animals: cat(s) and dog(s) Sexually active: Yes Do you think of yourself as: straight/heterosexual Current gender identity: female What is your relationship status?: living with partner How often do you talk on the phone with friends or family?: three or more times per week How often do you get together with friends or relatives?: three or more times per week Panel score (0-1 are the most socially isolated patients): 2 What type of physical activity do you participate in: walking and running Duration: 60-90 minutes/day Frequency: daily Special salma needs: No Seatbelt use: always Helmet use: Yes Drive intox or ride w/intox long haul truck driver: No Working smoke detector in home: Yes Carbon monox detector in home: Yes Firearms in home: Yes Firearms unloaded and locked: Yes Do you feel safe at home: Yes Do you feel safe in your relationship?: Yes Victim of physical abuse: No Victim of emotional abuse: No Victim of sexual abuse: No Would you like helpful sources: No Female Reproductive History Menstrual control method: progestin IUCD (Kyleena) History History 0 Para Hx # Term Pregnancies Multiple births Hx # Pregnancies Ectopic pregnancies AB induced Hx Number of Living Children AB spontaneous POCUS Exam (ED) Limited Soft Tissue Exam PROVIDER THAT PERFORMED THE STUDY: Nellie Byers
[2024-08-27 12:16] LABS: Abs Immature Grans 0.14 10^3/uL (0.0-0.06); HCT 41.4 % (36.0-46.0); HGB 13.6 g/dL (11.2-15.7); Immature Grans % 0.6 %; MCH 30.0 pg (27.0-33.0); MCHC 32.9 % (32.0-36.0); MCV 91 fL (80-95); MPV 9.1 fL (8.0-11.0); Platelet Count 273 10^3/uL (130-400); RBC 4.54 10^6/uL (3.93-5.22); RDW 11.9 % (11.7-14.6); RDW-SD 39.8 fL; WBC 21.86 10^3/uL (4.4-10.8)
[2024-08-27 12:41] LABS: ALT 20 U/L (14-59); AST 11 U/L (15-37); Albumin 3.5 g/dL (3.4-5.0); Alkaline Phosphatase 65 U/L (46-116); Anion Gap 6.0 mmol/L (3-11); BUN 14 mg/dL (7-18); Bilirubin, Total 0.5 mg/dL (0.2-1.0); CO2 33.0 mmol/L (21.0-32.0); Calcium 9.6 mg/dL (8.5-10.1); Chloride 102 mmol/L (98-107); Estimated GFR 132.52 (mL/min/1.73m2); Glucose 95 mg/dL (74-106); Magnesium 2.1 mg/dL (1.8-2.4); Potassium 4.1 mmol/L (3.5-5.1); Sodium 141 mmol/L (136-145); Total Protein 7.6 g/dL (6.4-8.2)
[2024-08-27] MEDS: Normal Saline - Diluent 50 ML VIAL IJ (12:52)
[2024-08-27] MEDS: Omnipaque 350 MG/ML 100 ML BTL IJ (12:53)
--- NOTE | 2024-08-27 12:59 | DI.CT_ITS ---
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 TECHNIQUE: Imaging Protocol: Axial computed tomography images with coronal and sagittal reformatted images were created and reviewed. CONTRAST MATERIAL: Intravenous: Omnipaque 350 Contrast volume:100mL COMPARISON: No exams were available for comparison FINDINGS: Visualized intracranial structures: Within normal limits. Orbits and orbital soft tissues: Within normal limits. Visualized paranasal sinuses: Within normal limits. Pharynx: There is heterogeneous enlargement of both tonsils, right greater than left. There is a peripherally enhancing fluid collection on the right measuring 2.5 AP by 1.5 transverse by 3.9 cm craniocaudad consistent with an abscess. There also smaller fluid collections seen in the left tonsils consistent with small abscesses. The largest measures 0.9 x 0.4 cm. There is resultant narrowing of the airway. The transverse diameter is 6 mm (series 3, image 38). Larynx: Within normal limits. Retropharyngeal space: Within normal limits. Parotids/submandibular: Within normal limits. Thyroid gland: Within normal limits. Lymphadenopathy: There are enlarged cervical lymph nodes which are likely reactive. Trachea: Within normal limits. Lung apices: Within normal limits. Bones: Within normal limits for the patient's age. There is reversal of the normal cervical lordosis which may be due to muscle spasm or patient positioning. Carotids/Jugular: Within normal limits. Soft tissues: There is infiltration of the soft tissues around the right submandibular gland but no focal fluid collection is seen. IMPRESSION: 1. Bilateral tonsillitis with bilateral peritonsillar abscesses. The largest is on the right and measures 2.5 x 1.5 x 3.9 cm. The largest on the left measures 0.9 x 0.4 cm. There is narrowing of the airway to 6 mm. 2. Reactive cervical adenopathy. 3. The findings were discussed with Dr. Maldonado at 1:36 p.m. on 08/27/2024. RADIATION DOSE DELIVERED: 249.79mGy.cm Total DLP 249.79mGy.cm Total DLP DATA REPOSITORY: All CT scans at this facility are submitted to the National Radiology Data Registry (NRDR) Dose Index Registry (DIR) with the [place] [employer] (A[employer]). RADIATION OPTIMIZATION: All CT scans at this facility use at least one of these dose optimization techniques: automated exposure control; mA and/or kV adjustment per patient size (includes targeted exams where dose is matched to clinical indication); or iterative reconstruction.
[2024-08-27] MEDS: Ketorolac 15 MG/ML VIAL IVP ×2 (13:40→23:58)
[2024-08-27] MEDS: Dexamethasone 10 MG/ML VIAL IVP ×2 (14:31→19:44)
[2024-08-27] MEDS: Lactated Ringers 1,000 ML 1000 ML IV (14:32)
[2024-08-27] MEDS: Lidocaine 2% Multi-Dose W/EPI 1/100,000 20 ML VIAL IJ (14:56)
[2024-08-27] MEDS: CLINDAMYCIN 600 MG/50 ML BAG 100 MG IVPB (15:20)
[2024-08-27] MEDS: ACETAMINOPHEN 1,000 MG/100 ML BAG 400 MG (16:36)
--- NOTE | 2024-08-27 17:13 | W.PM.HP.N ---
Date of service: 08/27/24 Time of Service: 17:13 Assessment and Plan Assessment and plan (1) Abscess, peritonsillar: Status: Acute Assessment and plan: will start on clindamycin/cw levaquin/cw steroids. Ordered mumps and kay dorantes for completeness. Recent C&G negative. Considering clindamycin, will recommend probiotic when tolerating PO intake History of Present Illness History of Present Illness Chief Complaint: sore throat Narrative: This is a 18-year-old female with multiple contacts with the medical establishment lately due to a sore throat. She had actually been seen on 20 August as well as 18 August for sore throat concerning for strep. Patient was given antibiotics for which she took as prescribed continue to have significant pain came back to the ED for further evaluation and treatment while she was here she did get a CT scan which was indicative of narrowing airway to 6 mm. At that time the ED physician reached out to Dr. Lima of the ENT service who recommended incision and drainage. This will be performed at the bedside by the ED physician. After the procedure, recommendation was made to keep the patient overnight at least for further evaluation and treatment including sensitivities to her draining fluid from her abscess. Per our discussion with Dr. Levy states he would be available if the patient had respiratory distress and also recommended clindamycin Levaquin and steroids. The patient has been scheduled for tonsillectomy few months Review of Systems All systems reviewed & are unremarkable except as noted in HPI and below PFSH All Active Problems (Updated 08/27/24 @ 16:08 by Nellie Byers MD) Abscess, peritonsillar (Acute) Acute tonsillitis (Acute) Thoughts of self harm (Acute) Anxiety (Chronic) Allergic rhinitis (Acute) Medical History (Updated 08/27/24 @ 16:08 by Nellie Byers MD) IUD (intrauterine device) in place 04/2021. Kyleena. Contraception 12/2019. Nexplanon inserted. 04/2020. Nexplanon removed. OCPs started. 04/2021. OCP stopped. Kyleena IUD inserted Abnormal uterine bleeding (AUB) 2mo after insertion 6w of daily bleeding. Acute otitis media of left ear in pediatric patient Strep throat has frequently over the years Family History Mother Diabetes Asthma Depression Father Essential hypertension Asthma Hyperlipidemia Sister Asthma Substance use disorder Depression Brother Depression Maternal Grandmother Diabetes Maternal Grandfather Alcohol use disorder Cancer Paternal Grandfather Diabetes Heart disease Hyperlipidemia Essential hypertension Stroke Social History (Updated 10/05/23 @ 12:09 by Lashawn Toro) Smoking/Tobacco Use Status: Current-Occasional Tobacco Type: e-cigarettes Second Hand Exposure: Yes Smoking risk assessment performed?: Yes Alcohol Intake: current Alcohol Intake frequency: a few times a week Drug use: Socially Substance use type: marijuana Details: marijuana use monthly, usually edibles Adopted: No Caregiver/Support person: No Foster care: No Household members: significant other Housing: house Number of Children: 0 Communication Needs: Corrective Lenses Education Level: high school Details: 12th grade Do you need help understanding health information?: Never 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 Pets and animals: Yes (4 dogs an 4 cats) Pets and animals: cat(s) and dog(s) Sexually active: Yes Do you think of yourself as: straight/heterosexual Current gender identity: female What is your relationship status?: living with partner How often do you talk on the phone with friends or family?: three or more times per week How often do you get together with friends or relatives?: three or more times per week Panel score (0-1 are the most socially isolated patients): 2 What type of physical activity do you participate in: walking and running Duration: 60-90 minutes/day Frequency: daily Special salma needs: No Seatbelt use: always Helmet use: Yes Drive intox or ride w/intox marine engine driver: No Working smoke detector in home: Yes Carbon monox detector in home: Yes Firearms in home: Yes Firearms unloaded and locked: Yes Do you feel safe at home: Yes Do you feel safe in your relationship?: Yes Victim of physical abuse: No Victim of emotional abuse: No Victim of sexual abuse: No Would you like helpful sources: No Female Reproductive History Menstrual control method: progestin IUCD (Kyleena) History History 0 Para Hx # Term Pregnancies Multiple births Hx # Pregnancies Ectopic pregnancies AB induced Hx Number of Living Children AB spontaneous Meds Allergies and Home Medications Allergies Allergy/AdvReac Type Severity Reaction Status Date / Time amoxicillin (Amoxicillin) Allergy Mild rash/unknown/family Verified 08/27/24 11:01 hx Home Medications ?Medication ?Instructions ?Recorded ?Confirmed ?Type levonorgestrel 17.5 mcg/24 hr (up 1 device intrauterine ONCE #1 ea 05/13/21 08/27/24 Rx to 4 yrs) 19.5mg intrauterine device (Kyleena) acetaminophen 500 mg tablet 1,000 mg PO Q6H PRN 11/07/21 08/27/24 History triamcinolone acetonide 0.1 % 1 applic topical BID #30 grams 12/12/23 08/27/24 Rx topical cream levofloxacin 750 mg tablet 750 mg PO DAILY #7 tabs 08/22/24 08/27/24 Rx prednisone 20 mg tablet 20 mg PO DAILY #5 tabs 08/23/24 08/27/24 Rx Exam Narrative Exam Narrative: Gen: Awake and alert, in no apparent distress HEENT: Non-icteric sclera, posterior pharynx with significant right peritonsillar swelling and large bilateral tonsils, erythematous, no significant exudative findings. She has mild trismus but I am able to fully visualize the posterior pharynx. Neck: Supple, full range of motion, right greater than left sided tender lymphadenopathy Lungs: No apparent respiratory distress, normal respiratory effort. The patient is without stridor, wheezing, or other focal lung findings CV: Appears well perfused, heart with regular rate and rhythm, strong distal pulses Abdomen: Non-distended MSK: Moves 4 extremities without apparent limitation in ROM Skin: Visualized skin without rashes, cyanosis. Neuro: Normal Gait, no obvious focal deficits or facial asymmetry. Psych: Appropriate for situation. Results Labs 08/27/24 12:00 08/27/24 12:00 Labs: Laboratory Results - last 24 hr 08/27/24 12:00 WBC 21.86 H RBC 4.54 Hgb 13.6 Hct 41.4 MCV 91 MCH 30.0 MCHC 32.9 RDW 11.9 Plt Count 273 MPV 9.1 Immature Gran % 0.6 Neutrophils % 86.8 Lymphocytes % 6.3 Monocytes % 6.1 Eosinophils % 0.0 Basophils % 0.2 Nucleated RBC % 0.0 Absolute Neutrophils 18.97 H Absolute Lymphocytes 1.38 Absolute Monocytes 1.33 H Absolute Eosinophils 0.00 Absolute Basophils 0.04 Sodium 141 Potassium 4.1 Chloride 102 Carbon Dioxide 33.0 H Anion Gap 6.0 BUN 14 Creatinine 0.6 Est GFR (CKD-EPI 2020) 132.52 Glucose 95 Calcium 9.6 Magnesium 2.1 Total Bilirubin 0.5 AST 11 L ALT 20 Alkaline Phosphatase 65 Total Protein 7.6 Albumin 3.5 Last Vital Signs Temp 36.7 C 08/27/24 11:01 Pulse 94 H 08/27/24 11:01 Resp 20 08/27/24 11:01 BP 112/77 08/27/24 11:01 Pulse Ox 97 08/27/24 11:01 Time Spent Time spent with Patient: <40 minutes Time was spent: preparing to see the patient(eg.review tests), obtaining and/or reviewing separately otained hiistory, ordering medications,tests, procedures, referring, communicating with other health child care associate, indepentently interpreting results, counseling the patient and care coordination
[2024-08-27] MEDS: levoFLOXacin 750 MG/150 ML BAG 100 MG IVPB (19:44)
[2024-08-27 20:51] LABS: Mono Screening Negative (Negative)
[2024-08-27] MEDS: MORPHine 2 MG/ML SYR 1 MG IVP (21:33)
[2024-08-27] MEDS: CLINDAMYCIN 900 MG/50 ML BAG 50 MG IVPB (22:17)
[2024-08-27] MEDS: Normal Saline Flush 10 ML SYR IVP (22:18)
[2024-08-27] MEDS: ACETAMINOPHEN 1,000 MG/100 ML BAG 400 MG IVPB (23:58)
[2024-08-28] VITALS (13 sets, daily range): BP systolic 98–136; BP diastolic 54–80; PULSE 61–96; RESP 15–22; TEMP 36.1–37.3; O2SAT 96–99
[2024-08-28] MEDS: MORPHine 2 MG/ML SYR 1 MG IVP ×2 (03:59→22:25)
[2024-08-28] MEDS: CLINDAMYCIN 900 MG/50 ML BAG 50 MG IVPB ×4 (04:00→22:32)
[2024-08-28 05:29] LABS: Abs Immature Grans 0.17 10^3/uL (0.0-0.06); HCT 37.9 % (36.0-46.0); HGB 12.8 g/dL (11.2-15.7); Immature Grans % 0.8 %; MCH 29.9 pg (27.0-33.0); MCHC 33.8 % (32.0-36.0); MCV 89 fL (80-95); MPV 8.8 fL (8.0-11.0); Platelet Count 283 10^3/uL (130-400); RBC 4.28 10^6/uL (3.93-5.22); RDW 11.9 % (11.7-14.6); RDW-SD 38.3 fL; WBC 21.69 10^3/uL (4.4-10.8)
[2024-08-28 05:38] LABS: Anion Gap 7.1 mmol/L (3-11); BUN 15 mg/dL (7-18); CO2 30.9 mmol/L (21.0-32.0); Calcium 9.9 mg/dL (8.5-10.1); Chloride 99 mmol/L (98-107); Estimated GFR 138.47 (mL/min/1.73m2); Glucose 129 mg/dL (74-106); Potassium 4.3 mmol/L (3.5-5.1); Sodium 137 mmol/L (136-145)
[2024-08-28] MEDS: Ketorolac 15 MG/ML VIAL IVP ×2 (06:29→14:13)
[2024-08-28] MEDS: ACETAMINOPHEN 1,000 MG/100 ML BAG 400 MG IVPB (06:29)
[2024-08-28] MEDS: Dexamethasone 10 MG/ML VIAL IVP ×2 (09:26→21:03)
--- NOTE | 2024-08-28 10:44 | NUR.NOTE ---
Nursing Note: sitting up in bed with 2 friends at the bed side.PT shook head yes and gave a thumbs up when asked if she was tolerating the ice chips
--- NOTE | 2024-08-28 11:05 | INITIAL_ITS ---
Date of service: 08/28/24 Time of Service: 11:05 Care Management Initial Assmt Initial Assessment Reason for Hospitalization: tonsil abscess Functional Status/Living Situation Patient Presentation: Lb was lying in bed when CM met with her; her brother was in the room, visiting. Lb was pleasant and engaged well, although she spoke softly, due to the throat pain she was experiencing. Per report, she had an I&D of her tonsillar abscess while in the ED, and is being treated with IV antibiotics. Lb reported that she was seen by ENT, who is following her, and she is scheduled to follow up with outpatient. She stated that she was in the ED overnight, and was happy to now be in a room on /. 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 Her family is very supportive, and lives nearby. She is independent in the community and will not require any community supports upon discharge. CM will continue to follow. Town of Residence: [place] Resides with: Alone Significant Other/Family: Local Natural Supports: Parents, Leola and Shaggy Siblings Employment Status: Employed ([employer]) Instrumental Activities of Daily Living (ADLs): Independent Medications Medication Management: No Issues/Barriers identified Physical Functioning/Mobility Assistive Device: none Advance Directives Advance Directives: Do you have an Advance Directive: N , 14:05 AD On File at [facility]: N 08/23/23, 14:05 Date Asked 08/20/24 08/20/24, 16:30 AD Date Reviewed COLST On File at [facility] No 08/23/23, 14:05 COLST Date Scanned Code Status Resuscitation Status Full Code Insurance Coverage/Financial Issues Insurance: / Care Team Visit Care Team Role Provider Type Alonzo Rodriguez NP Primary Care Provider NURSE PRACTITIONER Nellie Byers MD Emergency Provider [facility] STAFF PHYSICIAN Will Bejarano MD Admit Provider [facility] STAFF PHYSICIAN Attending Provider Discharge Potential Discharge Needs: PCP F/U Appt Anticipated Barriers to Discharge: None Identified Patient/Family Education Needs: Review discharge instructions, discuss Ask Me Three Transportation: Private vehicle Plan: Anticipate Lb will return home once medically cleared. She will transport home via private vehicle by family. She will follow up with her PCP, ENT, and her discharge plan of care. CM will continue to follow. Social Determinants of Health Screening Will the Patient Participate in the Screening?: Declined to provide PFSH All Active Problems (Updated 08/27/24 @ 16:08 by Nellie Byers MD) Abscess, peritonsillar (Acute) Acute tonsillitis (Acute) Thoughts of self harm (Acute) Anxiety (Chronic) Allergic rhinitis (Acute) Medical History (Updated 08/27/24 @ 16:08 by Nellie Byers MD) IUD (intrauterine device) in place 04/2021. Kyleena. Contraception 12/2019. Nexplanon inserted. 04/2020. Nexplanon removed. OCPs started. 04/2021. OCP stopped. Kyleena IUD inserted Abnormal uterine bleeding (AUB) 2mo after insertion 6w of daily bleeding. Acute otitis media of left ear in pediatric patient Strep throat has frequently over the years Family History Mother Diabetes Asthma Depression Father Essential hypertension Asthma Hyperlipidemia Sister Asthma Substance use disorder Depression Brother Depression Maternal Grandmother Diabetes Maternal Grandfather Alcohol use disorder Cancer Paternal Grandfather Diabetes Heart disease Hyperlipidemia Essential hypertension Stroke Social History (Updated 10/05/23 @ 12:09 by Lashawn Toro) Smoking/Tobacco Use Status: Current-Occasional Tobacco Type: e-cigarettes Second Hand Exposure: Yes Smoking risk assessment performed?: Yes Alcohol Intake: current Alcohol Intake frequency: a few times a week Drug use: Socially Substance use type: marijuana Details: marijuana use monthly, usually edibles Adopted: No Caregiver/Support person: No Foster care: No Household members: significant other Housing: apartment Number of Children: 0 Communication Needs: Corrective Lenses Education Level: high school Details: 12th grade Do you need help understanding health information?: Never 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 Pets and animals: Yes (4 dogs an 4 cats) Pets and animals: cat(s) and dog(s) Sexually active: Yes Do you think of yourself as: straight/heterosexual Current gender identity: female What is your relationship status?: living with partner How often do you talk on the phone with friends or family?: three or more times per week How often do you get together with friends or relatives?: three or more times per week Panel score (0-1 are the most socially isolated patients): 2 What type of physical activity do you participate in: walking and running Duration: 60-90 minutes/day Frequency: daily Special salma needs: No Seatbelt use: always Helmet use: Yes Drive intox or ride w/intox service parts driver: No Working smoke detector in home: Yes Carbon monox detector in home: Yes Firearms in home: Yes Firearms unloaded and locked: Yes Do you feel safe at home: Yes Do you feel safe in your relationship?: Yes Victim of physical abuse: No Victim of emotional abuse: No Victim of sexual abuse: No Would you like helpful sources: No Female Reproductive History Menstrual control method: progestin IUCD (Kyleena) History History 0 Para Hx # Term Pregnancies Multiple births Hx # Pregnancies Ectopic pregnancies AB induced Hx Number of Living Children AB spontaneous
--- NOTE | 2024-08-28 12:42 | W.PM.PROGNOT ---
Date of Service Date of service: 08/28/24 Time of Service: 12:42 Assessment and Plan Assessment and plan (1) Abscess, peritonsillar: Status: Acute Assessment and plan: will start on clindamycin/cw levaquin/cw steroids. Ordered mumps and kay dorantes for completeness. Recent C&G negative. Considering clindamycin, will recommend probiotic when tolerating PO intake. 08.27.24 reaching out to pharmacy to see if we have a liquid probiotic. Still a bit leery about trying pills considering ct results. Pt does not endorse n/v/diarrhea. Subjective Subjective Interval history since last seen: PT seen and examined in her room. Denies f/c/n/v. Tolerating ice chips. Exam Narrative Exam Narrative: HEENT-able to open mouth wider neck-no lad no jvd cv-rrr lunsg-ctab no amu no distress abd-non distended psyc-alert gives linear history Objective Last Vital Signs Temp 36.6 C 08/28/24 12:27 Pulse 71 08/28/24 12:27 Resp 18 08/28/24 12:27 BP 110/64 08/28/24 12:27 Pulse Ox 98 08/28/24 12:27 Laboratory Results - last 24 hr 08/27/24 08/27/24 08/28/24 12:00 17:10 04:56 WBC Cancelled RBC Cancelled Hgb Cancelled Hct Cancelled MCV Cancelled MCH Cancelled MCHC Cancelled RDW Cancelled Plt Count Cancelled MPV Cancelled Immature Gran % Cancelled Neutrophils % Cancelled Band Neutrophils % Cancelled Lymphocytes % Cancelled Atypical Lymphs % Cancelled Monocytes % Cancelled Eosinophils % Cancelled Basophils % Cancelled Metamyelocytes % Cancelled Myelocytes % Cancelled Promyelocytes % Cancelled Other Cells % Cancelled Nucleated RBC % Cancelled Absolute Neutrophils Cancelled Absolute Lymphocytes Cancelled Absolute Monocytes Cancelled Absolute Eosinophils Cancelled Absolute Basophils Cancelled RBC Morphology Cancelled Polychromasia Cancelled Hypochromasia Cancelled Poikilocytosis Cancelled Basophilic Stippling Cancelled Anisocytosis Cancelled Microcytosis Cancelled Macrocytosis Cancelled Spherocytes Cancelled Tear Drop Cells Cancelled Ovalocytes Cancelled Stomatocytes Cancelled [place] Bodies Cancelled Chrissy Cells/Echinocytes Cancelled Acanthocytes (Spur) Cancelled Schistocytes Cancelled Sodium 141 Cancelled Potassium 4.1 Cancelled Chloride 102 Cancelled Carbon Dioxide 33.0 H Cancelled Anion Gap 6.0 Cancelled BUN 14 Cancelled Creatinine 0.6 Cancelled Est GFR (CKD-EPI 2020) 132.52 Cancelled Glucose 95 Cancelled Calcium 9.6 Cancelled Magnesium 2.1 Total Bilirubin 0.5 AST 11 L ALT 20 Alkaline Phosphatase 65 Total Protein 7.6 Albumin 3.5 EBV PCR Qual, Other Cancelled EBV DNA (PCR) Cancelled Monoscreen Negative 08/28/24 05:18 WBC 21.69 H RBC 4.28 Hgb 12.8 Hct 37.9 MCV 89 MCH 29.9 MCHC 33.8 RDW 11.9 Plt Count 283 MPV 8.8 Immature Gran % 0.8 Neutrophils % 92.0 Band Neutrophils % Lymphocytes % 4.3 Atypical Lymphs % Monocytes % 2.8 Eosinophils % 0.0 Basophils % 0.1 Metamyelocytes % Myelocytes % Promyelocytes % Other Cells % Nucleated RBC % 0.0 Absolute Neutrophils 19.95 H Absolute Lymphocytes 0.93 L Absolute Monocytes 0.61 Absolute Eosinophils 0.00 Absolute Basophils 0.02 RBC Morphology Polychromasia Hypochromasia Poikilocytosis Basophilic Stippling Anisocytosis Microcytosis Macrocytosis Spherocytes Tear Drop Cells Ovalocytes Stomatocytes [place] Bodies [place] Cells/Echinocytes Acanthocytes (Spur) Schistocytes Sodium 137 Potassium 4.3 Chloride 99 Carbon Dioxide 30.9 Anion Gap 7.1 BUN 15 Creatinine 0.5 L Est GFR (CKD-EPI 2020) 138.47 Glucose 129 H Calcium 9.9 Magnesium Total Bilirubin AST ALT Alkaline Phosphatase Total Protein Albumin EBV PCR Qual, Other EBV DNA (PCR) Monoscreen PAWSS Have you Been Recently Intoxicated or Drunk Within the Last 30 days?: No Have you Ever Experienced Previous Episodes of Alcohol Withdrawal?: No Have you ever Experienced Withdrawal Seizures?: No Have you ever Experienced Delirium Tremens(DT)s?: No Have you ever undergone Alcohol Rehabilitation Treatment (i.e, inpt ot outpatient treatment programs)?: No Have you ever Experienced Blackouts?: No Have you ever Combined Alcohol with other Downers within the last 90 days?: No Have you ever Combined Alcohol with any other Substance of Abuse during the last 90 days?: No Positive Blood Alcohol level on Presentation? [PCS.BAL]: No Evidence of Increased Autonomic Activity (i.e. HR>120, tremor, sweating, agitation, nausea)?: No Result: 0 Time Spent with Patient Time Spent with Patient: <25 minutes Time was spent: preparing to see the patient(eg.review tests), obtaining and/or reviewing separately otained hiistory, ordering medications,tests, procedures, referring, communicating with other health animal care assistant, indepentently interpreting results, counseling the patient and care coordination
[2024-08-28] MEDS: Normal Saline Flush 10 ML SYR IVP ×3 (14:14→21:04)
[2024-08-28] MEDS: levoFLOXacin 750 MG/150 ML BAG 100 MG IVPB (18:24)
[2024-08-29] MEDS: CLINDAMYCIN 900 MG/50 ML BAG 50 MG IVPB ×4 (04:00→22:36)
[2024-08-29] MEDS: Ketorolac 15 MG/ML VIAL IVP ×3 (05:19→21:03)
[2024-08-29 07:04] LABS: Abs Immature Grans 0.11 10^3/uL (0.0-0.06); HCT 40.4 % (36.0-46.0); HGB 13.4 g/dL (11.2-15.7); Immature Grans % 0.7 %; MCH 29.6 pg (27.0-33.0); MCHC 33.2 % (32.0-36.0); MCV 89 fL (80-95); MPV 9.2 fL (8.0-11.0); Platelet Count 314 10^3/uL (130-400); RBC 4.53 10^6/uL (3.93-5.22); RDW 12.0 % (11.7-14.6); RDW-SD 39.5 fL; WBC 15.90 10^3/uL (4.4-10.8)
[2024-08-29 07:40] VITALS: BP 112/72; PULSE 64; RESP 16; TEMP 36; O2SAT 97
[2024-08-29 07:48] LABS: ALT 19 U/L (14-59); AST 11 U/L (15-37); Albumin 3.4 g/dL (3.4-5.0); Alkaline Phosphatase 60 U/L (46-116); Anion Gap 8.8 mmol/L (3-11); BUN 15 mg/dL (7-18); Bilirubin, Total 0.3 mg/dL (0.2-1.0); CO2 29.2 mmol/L (21.0-32.0); Calcium 10.3 mg/dL (8.5-10.1); Chloride 103 mmol/L (98-107); Estimated GFR 127.69 (mL/min/1.73m2); Glucose 142 mg/dL (74-106); Potassium 4.8 mmol/L (3.5-5.1); Sodium 141 mmol/L (136-145); Total Protein 7.9 g/dL (6.4-8.2)
[2024-08-29] MEDS: Normal Saline Flush 10 ML SYR IVP ×5 (09:23→22:37)
[2024-08-29] MEDS: Dexamethasone 10 MG/ML VIAL IVP ×2 (09:23→21:03)
--- NOTE | 2024-08-29 11:20 | W.PC.ACHO ---
Registration Status: ADM IN Primary Language: Preferred Language: Turkish ED Information & Data Chief Complaint Sorethroat 08/27/24 14:45 Chief Complaint Sorethroat 08/27/24 11:39 Triage Note Pt has had ongoing 08/27/24 11:01 tonsillitis. Is taking Levaquin. Sent by due to concerns for abscess. Has had a phone consult with Dr. Lima. Concerns of abscess per UC. Has been on prednisone, completed this and tonsils are swelling again. Medical / Surgical History (Last Updated 10/10/23 @ 14:11 by Mindy Paz MD) IUD (intrauterine device) in place Contraception Abnormal uterine bleeding (AUB) Acute otitis media of left ear in pediatric patient Strep throat Most Recent Vital Signs Temperature 36.0 C L 08/29/24 07:40 Temperature Source Temporal Artery Scan 08/29/24 07:40 Pulse 64 08/29/24 07:40 Pulse Rhythm Regular 08/28/24 13:47 Pulse 85 08/28/24 00:40 Respiratory Rate 16 08/29/24 07:40 Respiratory Effort Normal, Non-Labored 08/28/24 13:47 Respiratory Depth Normal 08/28/24 13:47 Respiratory Pattern Normal 08/28/24 13:47 Blood Pressure 112/72 08/29/24 07:40 Blood Pressure Mean 85 08/29/24 07:40 Blood Pressure Position Sitting 08/27/24 12:22 Pulse Oximetry 97 08/29/24 07:40 Oxygen Delivery Method Room Air 08/29/24 07:40 Oxygen Flow Rate 0 08/29/24 07:40 Pain Level 0 08/28/24 23:28 Comment pt refused 0300 vitals, will get when pt wakes up 08/29/24 03:00 Allergies amoxicillin (Amoxicillin) Allergy (Mild, Verified 08/27/24 11:01) rash/unknown/family hx Active Medications Generic Name Dose Route Start Last Admin Trade Name Freq PRN Reason Stop Dose Admin Dexamethasone 10 mg 08/27/24 20:00 08/29/24 09:23 Dexamethasone 10 Mg/Ml Vial IVP 10 mg BID KIANNA Administration Clindamycin Phosphate/Dextrose 900 mg in 50 mls @ 50 mls/hr 08/27/24 22:00 08/29/24 11:04 Cleocin In D5w IVPB 50 mls/hr Q6H KIANNA Administration Levofloxacin 750 mg in 150 mls @ 100 mls/hr 08/27/24 18:00 08/28/24 18:24 Levaquin Premixed Bag IVPB 100 mls/hr Q24H KIANNA Administration Acetaminophen 1,000 mg in 100 mls @ 400 mls/hr 08/27/24 23:51 08/28/24 10:41 Ofirmev IVPB Infused Q6H PRN PRN Infusion Ketorolac Tromethamine 15 mg 08/27/24 23:48 08/29/24 05:19 Ketorolac 15 Mg/Ml Vial IVP 09/01/24 23:47 15 mg Q6H PRN PRN Administration Morphine Sulfate 1 mg 08/27/24 21:12 08/28/24 22:25 Morphine 2 Mg/Ml Syr IVP 1 mg Q4H PRN PRN Administration Sodium Chloride 0 ml 08/27/24 11:17 08/28/24 16:09 Normal Saline Flush 10 Ml Syr IVP 10 ml PRN PRN Administration Sodium Chloride 0 ml 08/27/24 20:00 08/29/24 09:23 Normal Saline Flush 10 Ml Syr IVP 10 ml BID KIANNA Administration IV IV Catheter Type [Right Saline Lock Antecubital] IV Catheter Gauge [Right 20 Antecubital] Diagnostics 08/29/24 Range/Units 06:48 WBC 15.90 H (4.4-10.8) 10^3/uL RBC 4.53 (3.93-5.22) 10^6/uL Hgb 13.4 (11.2-15.7) g/dL Hct 40.4 (36.0-46.0) % MCV 89 (80-95) fL MCH 29.6 (27.0-33.0) pg MCHC 33.2 (32.0-36.0) % RDW 12.0 (11.7-14.6) % Plt Count 314 (130-400) 10^3/uL MPV 9.2 (8.0-11.0) fL Immature Gran % 0.7 % Neutrophils % 84.3 % Lymphocytes % 8.7 % Monocytes % 6.1 % Eosinophils % 0.0 % Basophils % 0.2 % Nucleated RBC % 0.0 (0.0-0.3) % Absolute Neutrophils 13.40 H (1.2-6.7) 10^3/uL Absolute Lymphocytes 1.38 (1.2-3.4) 10^3/uL Absolute Monocytes 0.97 H (0.1-0.8) 10^3/uL Absolute Eosinophils 0.00 (0.0-0.7) 10^3/uL Absolute Basophils 0.03 (0.0-0.2) 10^3/uL Sodium 141 (136-145) mmol/L Potassium 4.8 (3.5-5.1) mmol/L Chloride 103 (98-107) mmol/L Carbon Dioxide 29.2 (21.0-32.0) mmol/L Anion Gap 8.8 (3-11) mmol/L BUN 15 (7-18) mg/dL Creatinine 0.7 (0.55-1.02) mg/dL Est GFR (CKD-EPI 2020) 127.69 (mL/min/1.73m2) Glucose 142 H (74-106) mg/dL Calcium 10.3 H (8.5-10.1) mg/dL Total Bilirubin 0.3 (0.2-1.0) mg/dL AST 11 L (15-37) U/L ALT 19 (14-59) U/L Alkaline Phosphatase 60 (46-116) U/L Total Protein 7.9 (6.4-8.2) g/dL Albumin 3.4 (3.4-5.0) g/dL 08/27/24 15:08 Wound Culture - Preliminary Tonsil - Not Specified Normal [place] Gram Stain - Final Intake and Output - 24 Hour Total 08/27/24 10:42 thru 08/29/24 09:22 Intake Total 1700 Balance 1700 Weight 60.328 kg Intake: IV 1700 Other: Urine Appearance Clear Falls Risk Assessment History of Falls No History 08/28/24 13:47 Contributing Factors No Factors 08/28/24 13:47 Ambulatory Aids Independent 08/28/24 13:47 Tubes/Lines W/no contributing factors 08/28/24 13:47 Gait Evaluation No gait disturbance 08/28/24 13:47 Cognition No cognitive impairment 08/27/24 17:20 Fall Total Score 10 08/28/24 13:47 Level of Risk Standard/Low Risk 08/28/24 13:47 Problems (Last Updated 08/27/24 @ 14:11 by Mindy Paz MD) Abscess, peritonsillar (Acute) Notes 08/28/24 10:44 Nursing Notes by Tia Christianson Nursing Note: sitting up in bed with 2 friends at the bed side.PT shook head yes and gave a thumbs up when asked if she was tolerating the ice chips Initialized on 08/28/24 10:44 - END OF NOTE v v v v v v v v v Sending and/or Receiving Nurses: Please use comment section below to note any information pertinent to the patient hand-off not included above. Information / Comments: Report called at 12:31 Report received from: Marjan Marshall, ED RN
--- NOTE | 2024-08-29 11:45 | PDOC.CMPRO ---
Date of service: 08/29/24 Time of Service: 11:45 Care Management Progress Note Progress Note Text Progress Note Text: Lb was lying in bed visiting with her sister when CM met with her. She stated that she is feeling a little better, and is able to talk easier today. She reported that she met with Dr. Lima this morning, who discussed her plan of care, which will be to remain at [facility] again tonight, and then likely discharge home tomorrow. She has a follow up appointment scheduled with Dr. Lima on Monday. She is comfortable with this plan. She stated that her family is very supportive, and have been visiting regularly, which she appreciates. CM will continue to follow. Discharge Potential Discharge Needs: PCP F/U Appt and Other (ENT follow up) Anticipated Barriers to Discharge: None Identified Patient/Family Education Needs: Review discharge instructions, discuss Ask Me Three Transportation: Private vehicle Plan: Anticipate Lb will return home once medically cleared. She will transport home via private vehicle by family. She will follow up with her PCP, ENT, and her discharge plan of care. CM will continue to follow. Social Determinants of Health Screening Will the Patient Participate in the Screening?: Unable to obtain
--- NOTE | 2024-08-29 11:54 | CHAPLAIN ---
I had a short visit with Lb, explained my role and offered support. She had a friend visiting in the room with her. Lb is the daughter of Leola House, a former [employer] employee on Med/Surg and Care Management.
--- NOTE | 2024-08-29 12:24 | W.PM.PROGNOT ---
Date of Service Date of service: 08/29/24 Time of Service: 12:24 Assessment and Plan Assessment and plan (1) Abscess, peritonsillar: Status: Acute Assessment and plan: will start on clindamycin/cw levaquin/cw steroids. Ordered mumps and kay dorantes for completeness. Recent C&G negative. Considering clindamycin, will recommend probiotic when tolerating PO intake. 08.27.24 reaching out to pharmacy to see if we have a liquid probiotic. Still a bit leery about trying pills considering ct results. Pt does not endorse n/v/diarrhea. 08.28.24 D/W Dr Lima (ENT) Agree to keep in hospital one more day and dc tomorrow with clindamycin and steroid taper. PT does appear to be improving Subjective Subjective Interval history since last seen: Pt seen and examined in her room. No new complaints and is tolerating her diet Exam Narrative Exam Narrative: NCAT MMM enlarged right tonsil speaking in complete sentences no sign of airway compromise Objective Last Vital Signs Temp 36.0 C L 08/29/24 07:40 Pulse 64 08/29/24 07:40 Resp 16 08/29/24 07:40 BP 112/72 08/29/24 07:40 Pulse Ox 97 08/29/24 07:40 Laboratory Results - last 24 hr 08/29/24 06:48 WBC 15.90 H RBC 4.53 Hgb 13.4 Hct 40.4 MCV 89 MCH 29.6 MCHC 33.2 RDW 12.0 Plt Count 314 MPV 9.2 Immature Gran % 0.7 Neutrophils % 84.3 Lymphocytes % 8.7 Monocytes % 6.1 Eosinophils % 0.0 Basophils % 0.2 Nucleated RBC % 0.0 Absolute Neutrophils 13.40 H Absolute Lymphocytes 1.38 Absolute Monocytes 0.97 H Absolute Eosinophils 0.00 Absolute Basophils 0.03 Sodium 141 Potassium 4.8 Chloride 103 Carbon Dioxide 29.2 Anion Gap 8.8 BUN 15 Creatinine 0.7 Est GFR (CKD-EPI 2020) 127.69 Glucose 142 H Calcium 10.3 H Total Bilirubin 0.3 AST 11 L ALT 19 Alkaline Phosphatase 60 Total Protein 7.9 Albumin 3.4 PAWSS Have you Been Recently Intoxicated or Drunk Within the Last 30 days?: No Have you Ever Experienced Previous Episodes of Alcohol Withdrawal?: No Have you ever Experienced Withdrawal Seizures?: No Have you ever Experienced Delirium Tremens(DT)s?: No Have you ever undergone Alcohol Rehabilitation Treatment (i.e, inpt ot outpatient treatment programs)?: No Have you ever Experienced Blackouts?: No Have you ever Combined Alcohol with other Downers within the last 90 days?: No Have you ever Combined Alcohol with any other Substance of Abuse during the last 90 days?: No Positive Blood Alcohol level on Presentation? [PCS.BAL]: No Evidence of Increased Autonomic Activity (i.e. HR>120, tremor, sweating, agitation, nausea)?: No Result: 0 Time Spent with Patient Time Spent with Patient: <25 minutes Time was spent: preparing to see the patient(eg.review tests), obtaining and/or reviewing separately otained hiistory, ordering medications,tests, procedures, referring, communicating with other health manager respiratory care, indepentently interpreting results, counseling the patient and care coordination
[2024-08-29 14:58] VITALS: BP 122/78; PULSE 92; RESP 16; TEMP 36.1; O2SAT 97
[2024-08-29] MEDS: levoFLOXacin 750 MG/150 ML BAG 100 MG IVPB (18:47)
[2024-08-29 19:51] VITALS: BP 126/86; PULSE 69; RESP 18; TEMP 37; O2SAT 93
[2024-08-29 23:44] VITALS: BP 118/69; PULSE 72; RESP 16; TEMP 36.9; O2SAT 95
[2024-08-30] MEDS: CLINDAMYCIN 900 MG/50 ML BAG 50 MG IVPB ×2 (04:16→10:01)
[2024-08-30 05:00] VITALS: BP 122/72; PULSE 50; RESP 16; TEMP 36.7; O2SAT 98
[2024-08-30] MEDS: ACETAMINOPHEN 1,000 MG/100 ML BAG 400 MG IVPB (05:17)
[2024-08-30 07:06] LABS: Abs Immature Grans 0.09 10^3/uL (0.0-0.06); HCT 40.6 % (36.0-46.0); HGB 13.3 g/dL (11.2-15.7); Immature Grans % 0.7 %; MCH 29.4 pg (27.0-33.0); MCHC 32.8 % (32.0-36.0); MCV 90 fL (80-95); MPV 9.4 fL (8.0-11.0); Platelet Count 330 10^3/uL (130-400); RBC 4.52 10^6/uL (3.93-5.22); RDW 12.2 % (11.7-14.6); RDW-SD 40.5 fL; WBC 13.55 10^3/uL (4.4-10.8)
[2024-08-30 07:26] LABS: ALT 22 U/L (14-59); AST 11 U/L (15-37); Albumin 3.3 g/dL (3.4-5.0); Alkaline Phosphatase 56 U/L (46-116); Anion Gap 10.0 mmol/L (3-11); BUN 15 mg/dL (7-18); Bilirubin, Total 0.4 mg/dL (0.2-1.0); CO2 29.0 mmol/L (21.0-32.0); Calcium 9.6 mg/dL (8.5-10.1); Chloride 101 mmol/L (98-107); Estimated GFR 132.52 (mL/min/1.73m2); Glucose 132 mg/dL (74-106); Potassium 4.5 mmol/L (3.5-5.1); Sodium 140 mmol/L (136-145); Total Protein 7.6 g/dL (6.4-8.2)
[2024-08-30 07:33] VITALS: BP 115/72; PULSE 72; RESP 16; TEMP 36.8; O2SAT 97
--- NOTE | 2024-08-30 09:25 | W.PM.DS.N ---
Date of service: 08/30/24 Time of Service: 09:25 DS: Diagnosis Discharge Diagnosis (1) Abscess, peritonsillar: Status: Acute Discharge Plan Disposition Patient Disposition: Home Condition: Improving Discharge Details Reason For Visit: Peritonsillar Abscess Admit Date/Time: 08/27/24 16:02 Admit Provider: Will Bejarano Attending Provider: Will Bejarano Primary Care Provider: Alonzo Rodriguez Hospital Course Hospital Course: 18-year-old female is admitted to the hospital for peritonsillar abscess. While she was here she was seen in consultation with ENT but not formally. Patient was seen and I did discuss the case with Dr. Lawson who agreed with discharging her on the with clindamycin. Milligrams p.o. 4 times daily as well as a steroid taper. I have added probiotics secondary to clindamycin side effect profile including possible C. difficile colitis. Patient has a follow-up appointment with Dr. Faustin on Monday. At the time of discharge the patient was in no respiratory distress and tolerating orals diet. Home Meds and New Rx's Prescriptions: New clindamycin HCl [Cleocin HCl] 300 mg capsule 300 mg PO Q6H 10 Days Qty: 40 0RF prednisone 10 mg tablet 10 mg PO DIRECTED Qty: 15 0RF Rx Instructions: 2 pills daily for five days, then 1 pill for five days. Bio-K plus 50 billion cell capsule,delayed release(DR/EC) 1 cap PO DAILY 12 Days Qty: 12 0RF Continued triamcinolone acetonide 0.1 % cream 1 applic topical BID Qty: 30 0RF Kyleena 17.5 mcg/24 hrs (5 yrs) 19.5 mg intrauterine device 1 device intrauterine ONCE Qty: 1 0RF Rx Instructions: as a single dose acetaminophen 500 mg Tablet 1,000 mg PO Q6H PRN Discontinued levofloxacin 750 mg tablet 750 mg PO DAILY Qty: 7 0RF prednisone 20 mg tablet 20 mg PO DAILY Qty: 5 0RF Discharge Instructions Stand Alone Forms: Nursing Discharge Form Referrals: Alonzo Rodriguez NP [Primary Care Provider, Medicine] - 09/13/24 10:20 am Chuy Lima MD [ [facility]FF PHYSICIAN, ENT Surgical] - 09/02/24 11:00 am Activity:: Activity as Tolerated Equipment/Supplies:: No Equipment Needed Diet:: As Tolerated Discharge Orders Discharge Orders: Discharge Order (Routine); Ordered 08/30/24 Ordered By: Will Bejarano DS: Summary Time Spent with Patient providing and/or coordinating discharge services: Less than 30 minutes Status at Discharge Functional status at discharge: independent ambulation Overall status at discharge: patient is back to baseline Mental Status: mental status grossly normal Speech and Movement: speech and movement normal Mood: congruent mood Affect: normal affect Quality:SDOH Health Related Social Needs: Health related social needs details N/A Exam Narrative Exam Narrative: NCAT MMM enlarged right tonsil speaking in complete sentences no sign of airway compromise Psych Mental Status: mental status grossly normal Speech and Movement: speech and movement normal Mood: congruent mood Affect: normal affect DS: Data Vitals/I&O Vitals and I&O: Vital Signs Temperature 36.8 C 08/30/24 07:33 Temperature Source Temporal Artery Scan 08/30/24 07:33 Pulse 72 08/30/24 07:33 Pulse Rhythm Regular 08/28/24 13:47 Pulse 85 08/28/24 00:40 Respiratory Rate 16 08/30/24 07:33 Respiratory Effort Normal, Non-Labored 08/28/24 13:47 Respiratory Depth Normal 08/28/24 13:47 Respiratory Pattern Normal 08/28/24 13:47 Blood Pressure 115/72 08/30/24 07:33 Blood Pressure Mean 86 08/30/24 07:33 Blood Pressure Position Sitting 08/27/24 12:22 Pulse Oximetry 97 08/30/24 07:33 Oxygen Delivery Method Room Air 08/30/24 07:33 Oxygen Flow Rate 0 08/30/24 07:33 Pain Level 0 08/30/24 05:00 Comment pt refused 0300 vitals, will get when pt wakes up 08/29/24 03:00 Intake & Output 08/29/24 08/29/24 08/30/24 11:59 23:59 11:59 Intake Total 50 / 470 420 / 470 360 / 360 Balance 50 / 470 420 / 470 360 / 360 Intake: IV 50 / 470 420 / 470 120 / 120 Oral 240 / 240 Other: Urine Color Yellow Urine Appearance Clear Comment Pt voids independently. denies dysuria Data Completed and Pending Labs on day of discharge: Labs from last 24 hours 08/30/24 05:58 WBC 13.55 H RBC 4.52 Hgb 13.3 Hct 40.6 MCV 90 MCH 29.4 MCHC 32.8 RDW 12.2 Plt Count 330 MPV 9.4 Immature Gran % 0.7 Neutrophils % 80.6 Lymphocytes % 12.0 Monocytes % 6.5 Eosinophils % 0.1 Basophils % 0.1 Nucleated RBC % 0.0 Absolute Neutrophils 10.92 H Absolute Lymphocytes 1.63 Absolute Monocytes 0.88 H Absolute Eosinophils 0.01 Absolute Basophils 0.01 Sodium 140 Potassium 4.5 Chloride 101 Carbon Dioxide 29.0 Anion Gap 10.0 BUN 15 Creatinine 0.6 Est GFR (CKD-EPI 2020) 132.52 Glucose 132 H Calcium 9.6 Total Bilirubin 0.4 AST 11 L ALT 22 Alkaline Phosphatase 56 Total Protein 7.6 Albumin 3.3 L Preliminary micro results at discharge 08/27/24 15:08 Tonsil - Not Specified Wound Culture - Preliminary Normal [place] PFSH All Active Problems (Updated 08/27/24 @ 16:08 by Nellie Byers MD) Abscess, peritonsillar (Acute) Acute tonsillitis (Acute) Thoughts of self harm (Acute) Anxiety (Chronic) Allergic rhinitis (Acute) Medical History (Updated 08/27/24 @ 16:08 by Nellie Byers MD) IUD (intrauterine device) in place 04/2021. Kyleena. Contraception 12/2019. Nexplanon inserted. 04/2020. Nexplanon removed. OCPs started. 04/2021. OCP stopped. Kyleena IUD inserted Abnormal uterine bleeding (AUB) 2mo after insertion 6w of daily bleeding. Acute otitis media of left ear in pediatric patient Strep throat has frequently over the years Family History Mother Diabetes Asthma Depression Father Essential hypertension Asthma Hyperlipidemia Sister Asthma Substance use disorder Depression Brother Depression Maternal Grandmother Diabetes Maternal Grandfather Alcohol use disorder Cancer Paternal Grandfather Diabetes Heart disease Hyperlipidemia Essential hypertension Stroke Social History (Updated 10/05/23 @ 12:09 by Lashawn Toro) Smoking/Tobacco Use Status: Current-Occasional Tobacco Type: e-cigarettes Second Hand Exposure: Yes Smoking risk assessment performed?: Yes Alcohol Intake: current Alcohol Intake frequency: a few times a week Drug use: Socially Substance use type: marijuana Details: marijuana use monthly, usually edibles Adopted: No Caregiver/Support person: No Foster care: No Household members: significant other Housing: apartment Number of Children: 0 Communication Needs: Corrective Lenses Education Level: high school Details: [employer] 12th grade Do you need help understanding health information?: Never 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 Pets and animals: Yes (4 dogs an 4 cats) Pets and animals: cat(s) and dog(s) Sexually active: Yes Do you think of yourself as: straight/heterosexual Current gender identity: female What is your relationship status?: living with partner How often do you talk on the phone with friends or family?: three or more times per week How often do you get together with friends or relatives?: three or more times per week Panel score (0-1 are the most socially isolated patients): 2 What type of physical activity do you participate in: walking and running Duration: 60-90 minutes/day Frequency: daily Special salma needs: No Seatbelt use: always Helmet use: Yes Drive intox or ride w/intox 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: No Working smoke detector in home: Yes Carbon monox detector in home: Yes Firearms in home: Yes Firearms unloaded and locked: Yes Do you feel safe at home: Yes Do you feel safe in your relationship?: Yes Victim of physical abuse: No Victim of emotional abuse: No Victim of sexual abuse: No Would you like helpful sources: No Female Reproductive History Menstrual control method: progestin IUCD (Kyleena) History History 0 Para Hx # Term Pregnancies Multiple births Hx # Pregnancies Ectopic pregnancies AB induced Hx Number of Living Children AB spontaneous Time Spent with Patient Time Spent with Patient: <45 minutes Time was spent: preparing to see the patient(eg.review tests), obtaining and/or reviewing separately otained hiistory, ordering medications,tests, procedures, referring, communicating with other health child care cook, indepentently interpreting results, counseling the patient and care coordination
--- NOTE | 2024-08-30 09:27 | PDOC.CMDIS ---
Date of service: 08/30/24 Time of Service: 09:28 LACE Index Scoring Tool Questions: Length of Stay (in days): 3 Was the patient admitted via the E.D.?: Yes E.D. Visits: 3 Answers: Total Score: 9 Risk of Readmission: Low Risk Care Management Discharge Plan Reason for Hospitalization: Peritonsillar abscess Discharge Plan: bL will return home today with no new services. She will transport via private vehicle by family. She will follow up with her PCP, ENT, and her discharge plan of care. She is happy to be going home. Patient/Family Education Needs: Review discharge instructions and limitations, discussion of self care needs including ask me three. SDOH Health Related Social Needs: Health related social needs details N/A
[2024-08-30] MEDS: Ketorolac 15 MG/ML VIAL IVP (09:32)
[2024-08-30] MEDS: Dexamethasone 10 MG/ML VIAL IVP (09:33)
[2024-08-30] MEDS: Normal Saline Flush 10 ML SYR IVP (10:30)
[2024-09-03 15:36] LABS: Index Value 0.26 (0.00-0.79); Mumps Ab, IgG Positive; Mumps Ab, IgM Negative (Negative)
== END 2024-08-30 11:06 | disposition home or self-care (01) | DRG 153 ==
LOC: ER 16:08 → EDHOLD 16:15 → MS 08-28 12:59
PROVIDERS: Admitting Provider Hospitalist; Emergency Provider Emergency Medicine; PCP Nurse Practitioner Family; Responsible Provider Hospitalist; Visit Provider Hospitalist
DX: J36 Peritonsillar abscess (principal); J30.9 Allergic rhinitis, unspecified; F41.9 Anxiety disorder, unspecified; F17.290 Nicotine dependence, other tobacco product, uncomplicated
CPT/HCPCS: 00123; 36415; 42700; 70491; 80048; 80053; 83735; 86735; 96361; 96365; 96375; 99285; 85025; 86308; 87070; 87205; 87798; 99222; 99231; 99238; J0131; J0737; J1100; J1885; J1956; J2004; J2270; J3490

== ENCOUNTER 2024-09-04 14:13 | Outpatient (REF) | payer BC, SELFPAY ==
[2024-09-05 12:12] LABS: Chlamydia Result Negative (Negative); GC Result Negative (Negative)
== END 2024-09-04 14:14 | disposition home or self-care (01) ==
LOC: LBN 14:13
PROVIDERS: PCP Nurse Practitioner Family; Visit Provider Nurse Practitioner Women's Health
DX: Z11.3 Encounter for screening for infections with a predominantly sexual mode of transmission (principal)
CPT/HCPCS: 87491; 87591

== ENCOUNTER 2024-10-01 12:12 | Emergency (ER) | payer SELFPAY ==
--- NOTE | 2024-10-01 12:15 | DI.CT_ITS ---
Exam(s) CT NECK W EXAM: CT NECK W CLINICAL HISTORY: likely L peritonsillar abscess. TECHNIQUE: Imaging Protocol: Axial computed tomography images with coronal and sagittal reformatted images were created and reviewed CONTRAST MATERIAL: Intravenous: Omnipaque 350 Contrast volume:100 ml contrast COMPARISON: CT CT NECK W from 08/27/2024 FINDINGS: Parotids: Normal. Submandibular glands: Normal. Thyroid gland: Normal. Lymph nodes: There are scattered lymph nodes seen along the level one to level three all measuring less than 8 mm in short axis diameter which are physiologic in nature. Carotids arteries: No significant stenosis or dissection. Vertebral arteries: No significant stenosis or dissection. Soft tissues: The floor the mouth is unremarkable. The adenoids are unremarkable. There is some marked bilateral tonsillar enlargement again noted. There are small abscess collections bilaterally, less than 1 cm in size, but no significant drainable collection. There is again significant narrowing of the airway. No retropharyngeal abscess. The epiglottis and vocal cords are within normal limits. Lungs: Images through both lung apices are unremarkable. Bones: Unremarkable. Visualized portions of the brain and orbits: Unremarkable. Sinuses and mastoids: Clear. IMPRESSION: Bilateral tonsillar enlargement and inflammation, left greater than right. No drainable abscess collection. RADIATION DOSE DELIVERED: Total DLP DATA REPOSITORY: All CT scans at this facility are submitted to the National Radiology Data Registry (NRDR) Dose Index Registry (DIR) with the [employer] (ACR). RADIATION OPTIMIZATION: All CT scans at this facility use at least one of these dose optimization techniques: automated exposure control; mA and/or kV adjustment per patient size (includes targeted exams where dose is matched to clinical indication); or iterative reconstruction.
[2024-10-01 12:16] VITALS: BP 112/81; PULSE 111; RESP 12; TEMP 38.6; O2SAT 99
[2024-10-01 13:02] LABS: Abs Immature Grans 0.04 10^3/uL (0.0-0.06); HCT 39.6 % (36.0-46.0); HGB 13.3 g/dL (11.2-15.7); Immature Grans % 0.3 %; MCH 30.6 pg (27.0-33.0); MCHC 33.6 % (32.0-36.0); MCV 91 fL (80-95); MPV 10.0 fL (8.0-11.0); Platelet Count 189 10^3/uL (130-400); RBC 4.34 10^6/uL (3.93-5.22); RDW 12.7 % (11.7-14.6); RDW-SD 42.5 fL; WBC 12.88 10^3/uL (4.4-10.8)
[2024-10-01] MEDS: Ketorolac 15 MG/ML VIAL IVP (13:07)
[2024-10-01] MEDS: methylPREDNISolone SUCC 125 MG VIAL IVP (13:07)
[2024-10-01] MEDS: CLINDAMYCIN 900 MG/50 ML BAG 50 MG IVPB (13:08)
[2024-10-01] MEDS: ACETAMINOPHEN 1,000 MG/100 ML BAG 400 MG IVPB (13:08)
[2024-10-01 13:23] LABS: ALT 20 U/L (14-59); AST 16 U/L (15-37); Albumin 4.0 g/dL (3.4-5.0); Alkaline Phosphatase 47 U/L (46-116); Anion Gap 8.0 mmol/L (3-11); BUN 6 mg/dL (7-18); Bilirubin, Total 0.6 mg/dL (0.2-1.0); C-Reactive Protein 12.12 mg/dL (<or=0.5); CO2 30.0 mmol/L (21.0-32.0); Calcium 9.4 mg/dL (8.5-10.1); Chloride 100 mmol/L (98-107); Estimated GFR 126.90 (mL/min/1.73m2); Glucose 91 mg/dL (74-106); Potassium 3.6 mmol/L (3.5-5.1); Sodium 138 mmol/L (136-145); Total Protein 7.5 g/dL (6.4-8.2)
--- NOTE | 2024-10-01 13:27 | W.ED.GENAD ---
Discharge Plan Disposition Patient Disposition: Home Condition: Stable Discharge Details Clinical Impression: Acute tonsillitis Primary Care Provider: Alonzo Rodriguez ED Provider: Asaf Walls Home Meds and New Rx's Prescriptions: New clindamycin HCl [Cleocin HCl] 150 mg capsule 450 mg PO TID 10 Days Qty: 90 0RF prednisone 20 mg tablet 40 mg PO DAILY 6 Days Qty: 12 0RF Rx Instructions: start tomorrow No Action triamcinolone acetonide 0.1 % cream 1 applic topical BID Qty: 30 0RF Kyleena 17.5 mcg/24 hrs (5 yrs) 19.5 mg intrauterine device 1 device intrauterine ONCE Qty: 1 0RF Rx Instructions: as a single dose fluconazole 150 mg tablet 150 mg PO ONCE Qty: 3 1RF acetaminophen 500 mg Tablet 1,000 mg PO Q6H PRN Discharge Instructions Instructions: Clindamycin (Systemic), Prednisone, Sore Throat, Adult ED Additional Instructions: You were seen in the emergency department for your tonsillar swelling, there is no abscess or drainable fluid collection seen on your CT, your labs are reassuring, we are starting you on the antibiotic clindamycin which you should start taking 1 dose before bed tonight, also starting on prednisone, start taking that tomorrow. I spoke with ENT, Dr. Lima is on vacation this week and then he is in the office next week they are going to try to get you in early next week. Should you continue to have worsening vocal changes, swelling in the back your throat, neck swelling, difficulty opening and closing your mouth you should return to the ER or definitive facility with ENT coverage like [facility] emergently. Please use therapeutic dosing of Tylenol (acetamenophen) & Advil (ibuprofen) in an alternating fashion as follows: Take 1000mg of Tylenol every 6 hours without missing doses- that is 4 times per day. Shelter in between the Tylenol dosings, take 400-600mg of Advil also on a 6 hour schedule, that is also 4 times per day. The daily maximum dosing of Tylenol is 4000mg, and the daily maximum dosing of Advil is 2400mg. This is safe to do for weeks. Please note that some common cold medications & prescription pain medications may contain acetamenophen and you need to read OTC drug labels and factor that in to maximum daily dosings. Perform salt water gargles 3 times per day Referrals: Alonzo Rodriguez NP [Primary Care Provider, Medicine] Discharge Data Discharge Date/Time-TO BE ENTERED AT DEPARTURE: 10/01/24 16:50 HPI General Date/Time Provider Initiated Documentation: 10/01/24 12:19. 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 Severity is described as severe. Palliating factors include nothing specific. Provoking factors include nothing specific. Events leading up to the incident/Associated Symptoms: patient is followed by Dr. Lima. Patient not anticoagulated. Related Data Home Medications ?Medication ?Instructions ?Recorded ?Confirmed levonorgestrel 17.5 mcg/24 hr (up 1 device intrauterine ONCE #1 ea 05/13/21 10/02/24 to 5 yrs) 19.5mg intrauterine device (Kyleena) acetaminophen 500 mg tablet 1,000 mg PO Q6H PRN 11/07/21 10/02/24 triamcinolone acetonide 0.1 % 1 applic topical BID #30 grams 12/12/23 10/02/24 topical cream clindamycin HCl 150 mg capsule 450 mg (3 x 150 mg) PO TID 10 days 10/01/24 10/02/24 (Cleocin HCl) #90 caps prednisone 20 mg tablet 40 mg (2 x 20 mg) PO DAILY 6 days 10/01/24 10/02/24 #12 tabs fluconazole 150 mg tablet 150 mg PO ONCE #3 tabs 10/02/24 10/02/24 Previous Rx's ?Medication ?Instructions ?Recorded levonorgestrel 17.5 mcg/24 hr (up 1 device intrauterine ONCE #1 ea 05/13/21 to 5 yrs) 19.5mg intrauterine device (Kyleena) triamcinolone acetonide 0.1 % 1 applic topical BID #30 grams 12/12/23 topical cream clindamycin HCl 150 mg capsule 450 mg (3 x 150 mg) PO TID 10 days 10/01/24 (Cleocin HCl) #90 caps prednisone 20 mg tablet 40 mg (2 x 20 mg) PO DAILY 6 days 10/01/24 #12 tabs fluconazole 150 mg tablet 150 mg PO ONCE #3 tabs 10/02/24 Allergies Allergy/AdvReac Type Severity Reaction Status Date / Time amoxicillin (Amoxicillin) Allergy Mild rash/unknown/family Verified 10/02/24 15:00 hx General Stated Complaint: Sorethroat TRE: 2 Review of Systems All systems reviewed & are unremarkable except as noted in HPI and below Exam Narrative Exam Narrative: GENERAL APPEARANCE: Well-nourished, non-toxic, awake and alert, atraumatic, no acute distress. SKIN: Warm, pink, dry, intact, without rashes/lesions/ulcerations. HEAD: Normocephalic, atraumatic, normal hair distribution for gender/age. EYES: Normal conjunctiva, no exudates on lids/lashes. ENT: Nares patent, no circumoral cyanosis, no facial swelling, bilateral tonsillar swelling left greater than right, no exudate, uvula slightly deviated away from the left tonsil, no trismus, mild vocal changes without hot potato voice, no neck swelling NECK: Supple, trachea midline, painless cervical ROM. LUNGS/CHEST: Lungs CTA bilaterally, non-labored respirations, normal A/P diameter, symmetrical expansion, no chest wall deformity HEART (CV/PV): Regular rate and rhythm without murmur, no peripheral edema, no JVD. ABDOMEN: Soft, non-distended, no guarding. MSK: Normal ROM, no swelling/deformity to bilateral UEs or LEs, moving all extremities without weakness, no cyanosis, spine midline without tenderness, normal curvature. NEURO: Mental Status AAOx4 - alert to person, place, time, events No facial droop, no forehead involvement. Motor: No focal weakness - strength 5/5 in bilateral UEs and LEs, proximal and distal, symmetric. Sensory: sensation intact to light touch globally. Gait normal: patient ambulated without ataxia into ED room. PSYCH: euthymic, cooperative, pleasant, appropriate speech Course Vital Signs Vital signs: Vital Signs Temperature 38.6 C H 10/01/24 12:16 Pulse 111 H 10/01/24 12:16 Respiratory Rate 12 10/01/24 12:16 Blood Pressure 112/81 10/01/24 12:16 Pulse Oximetry 99 10/01/24 12:16 Temperature 38.6 C H 10/01/24 12:16 Temperature Source Oral 10/01/24 12:16 Pulse 111 H 10/01/24 12:16 Respiratory Rate 12 10/01/24 12:16 Blood Pressure 112/81 10/01/24 12:16 Blood Pressure Position Sitting 10/01/24 12:16 Pulse Oximetry 99 10/01/24 12:16 Pain Level 8 10/01/24 13:07 Lab/Test Results Lab/Test Results: 10/01/24 13:12 Blood Blood Culture - Pending 10/01/24 12:45 Tonsil - Not Specified Group A Streptococcus Culture - Pending 10/01/24 12:26 Blood Blood Culture - Pending Laboratory Tests Range/Units 10/01/24 12:50 VBG Lactate (<or=2.0) mmol/L 0.9 POC Strep Test-ABILIO(Rapid) Start: 10/01/24 12:22 Freq: .Rapid Strep Test Status: Active Protocol: Document 10/01/24 12:55 RAVI (Rec: 10/01/24 12:55 RAVI [id number]) Strep test-ABILIO(Rapid)-POC POC-Strep test-ABILIO ( Negative Rapid) POC-Strep test-ABILIO (Rapid) Negative Medical Decision Making This dictation utilizes [id number] dictation software and may contain unedited grammatical errors. 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 Severity is described as severe. Palliating factors include nothing specific. Provoking factors include nothing specific. Events leading up to the incident/Associated Symptoms: patient is followed by Dr. Lima. Patients' medical history: Tonsillitis, peritonsillar abscess. Family and social history: Noncontributory. Pertinent exam findings / vital signs include left tonsil is swollen, erythematous without exudate, uvula is slightly pushed over, no trismus, mild vocal changes, no excessive drooling, maintaining airway and inability to swallow. Differential / pathologies of concern include peritonsillar abscess, tonsillitis. Diagnostic studies of: - CT neck with contrast, rapid strep, CBC, CMP, lactate, CRP, blood cultures. - CBC shows mild leukocytosis of 12.8 - Lactate negative - CMP without actionable abnormality - CRP 12.12 - Blood cultures pending - Rapid strep negative - CT neck shows bilateral tonsillar enlargement and inflammation left greater than right with no drainable abscess collection Interventions of: - IV clindamycin due to penicillin allergy as well as IV Solu-Medrol and Rx for both on the outpatient basis, was consulted with ENT office, Dr. Lima is out this week but they will have her seen early next week as soon as he gets back. ED Course/Assessment/Plan: 19-year-old female with history of right peritonsillar abscess that was drained by Dr. Lima of ENT presents now with worsening left tonsillar swelling, there is no drainable abscess on her CT, I counseled her that we needed to perform antibiotics and steroids, she needs to be seen in ENT office for evaluation, did [place] counsel her that her condition may worsen and she could develop an abscess and to return for any sign of trismus, acute worsening despite treatment, recommend therapeutic Tylenol or ibuprofen. Findings not consistent with peritonsillar abscess, Javier's angina. Disposition of acute tonsillitis. Patient verbalized understanding of the plan and return to ED criteria and engaged in shared decision making. Medical Records Medical records reviewed: Yes I reviewed the patient's medical records. Imaging Data Radiologic Study: Attestation: I personally reviewed and interpreted this imaging study as follows: Imaging: CT Scan Radiologist's impression: EXAM: CT NECK W CLINICAL HISTORY: likely L peritonsillar abscess. TECHNIQUE: Imaging Protocol: Axial computed tomography images with coronal and sagittal reformatted images were created and reviewed CONTRAST MATERIAL: Intravenous: Omnipaque 350 Contrast volume:100 ml contrast COMPARISON: CT CT NECK W from 08/27/2024 FINDINGS: Parotids: Normal. Submandibular glands: Normal. Thyroid gland: Normal. Lymph nodes: There are scattered lymph nodes seen along the level one to level three all measuring less than 8 mm in short axis diameter which are physiologic in nature. Carotids arteries: No significant stenosis or dissection. Vertebral arteries: No significant stenosis or dissection. Soft tissues: The floor the mouth is unremarkable. The adenoids are unremarkable. There is some marked bilateral tonsillar enlargement again noted. There are small abscess collections bilaterally, less than 1 cm in size, but no significant drainable collection. There is again significant narrowing of the airway. No retropharyngeal abscess. The epiglottis and vocal cords are within normal limits. Lungs: Images through both lung apices are unremarkable. Bones: Unremarkable. Visualized portions of the brain and orbits: Unremarkable. Sinuses and mastoids: Clear. IMPRESSION: Bilateral tonsillar enlargement and inflammation, left greater than right. No drainable abscess collection. Lab Data Lab results reviewed: Yes I reviewed the patient's lab results. Labs: 10/01/24 13:25 Blood Blood Culture - Pending 10/01/24 13:12 Blood Blood Culture - Pending 10/01/24 12:45 Tonsil - Not Specified Group A Streptococcus Culture - Pending Laboratory Tests Range/Units 10/01/24 12:50 WBC (4.4-10.8) 10^3/uL 12.88 H RBC (3.93-5.22) 10^6/uL 4.34 Hgb (11.2-15.7) g/dL 13.3 Hct (36.0-46.0) % 39.6 MCV (80-95) fL 91 MCH (27.0-33.0) pg 30.6 MCHC (32.0-36.0) % 33.6 RDW (11.7-14.6) % 12.7 Plt Count (130-400) 10^3/uL 189 MPV (8.0-11.0) fL 10.0 Immature Gran % % 0.3 Neutrophils % % 77.4 Lymphocytes % % 8.9 Monocytes % % 13.2 Eosinophils % % 0.0 Basophils % % 0.2 Nucleated RBC % (0.0-0.3) % 0.0 Absolute Neutrophils (1.2-6.7) 10^3/uL 9.97 H Absolute Lymphocytes (1.2-3.4) 10^3/uL 1.15 L Absolute Monocytes (0.1-0.8) 10^3/uL 1.70 H Absolute Eosinophils (0.0-0.7) 10^3/uL 0.00 Absolute Basophils (0.0-0.2) 10^3/uL 0.03 RBC Morphology Normal VBG Lactate (<or=2.0) mmol/L 0.9 Sodium (136-145) mmol/L 138 Potassium (3.5-5.1) mmol/L 3.6 Chloride (98-107) mmol/L 100 Carbon Dioxide (21.0-32.0) mmol/L 30.0 Anion Gap (3-11) mmol/L 8.0 BUN (7-18) mg/dL 6 L Creatinine (0.55-1.02) mg/dL 0.7 Est GFR (CKD-EPI 2020) (mL/min/1.73m2) 126.90 Glucose (74-106) mg/dL 91 Calcium (8.5-10.1) mg/dL 9.4 Total Bilirubin (0.2-1.0) mg/dL 0.6 AST (15-37) U/L 16 ALT (14-59) U/L 20 Alkaline Phosphatase (46-116) U/L 47 C-Reactive Protein (<or=0.5) mg/dL 12.12 H Total Protein (6.4-8.2) g/dL 7.5 Albumin (3.4-5.0) g/dL 4.0 Quality:SDOH Health Related Social Needs: Health related social needs details N/A PFSH All Active Problems (Updated 10/01/24 @ 14:54 by ASAD Lind) Acute tonsillitis (Acute) Chronic tonsillitis (Acute) Abscess, peritonsillar (Acute) Acute tonsillitis (Acute) Thoughts of self harm (Acute) Anxiety (Chronic) Allergic rhinitis (Acute) Medical History IUD (intrauterine device) in place 04/2021. Kyleena. Contraception 12/2019. Nexplanon inserted. 04/2020. Nexplanon removed. OCPs started. 04/2021. OCP stopped. Kyleena IUD inserted Abnormal uterine bleeding (AUB) 2mo after insertion 6w of daily bleeding. Acute otitis media of left ear in pediatric patient Strep throat has frequently over the years Family History Mother Diabetes Asthma Depression Father Essential hypertension Asthma Hyperlipidemia Sister Asthma Substance use disorder Depression Brother Depression Maternal Grandmother Diabetes Maternal Grandfather Alcohol use disorder Cancer Paternal Grandfather Diabetes Heart disease Hyperlipidemia Essential hypertension Stroke Social History Smoking/Tobacco Use Status: Current-Occasional Tobacco Type: e-cigarettes Second Hand Exposure: Yes Smoking risk assessment performed?: Yes Alcohol Intake: current Alcohol Intake frequency: a few times a week Drug use: Socially Substance use type: marijuana Details: marijuana use monthly, usually edibles Adopted: No Caregiver/Support person: No Foster care: No Household members: significant other Housing: apartment Number of Children: 0 Communication Needs: Corrective Lenses Education Level: high school Details: [employer] 12th grade Do you need help understanding health information?: Never 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 Pets and animals: Yes (4 dogs an 4 cats) Pets and animals: cat(s) and dog(s) Sexually active: Yes Do you think of yourself as: straight/heterosexual Current gender identity: female What is your relationship status?: living with partner How often do you talk on the phone with friends or family?: three or more times per week How often do you get together with friends or relatives?: three or more times per week Panel score (0-1 are the most socially isolated patients): 2 What type of physical activity do you participate in: walking and running Duration: 60-90 minutes/day Frequency: daily Special salma needs: No Seatbelt use: always Helmet use: Yes Drive intox or ride w/intox ross carrier driver: No Working smoke detector in home: Yes Carbon monox detector in home: Yes Firearms in home: Yes Firearms unloaded and locked: Yes Do you feel safe at home: Yes Do you feel safe in your relationship?: Yes Victim of physical abuse: No Victim of emotional abuse: No Victim of sexual abuse: No Would you like helpful sources: No Female Reproductive History Menstrual control method: progestin IUCD (Kyleena) History History 0 Para Hx # Term Pregnancies Multiple births Hx # Pregnancies Ectopic pregnancies AB induced Hx Number of Living Children AB spontaneous
[2024-10-01 13:45] LABS: RBC Morphology Normal
[2024-10-01] MEDS: Normal Saline Flush 10 ML SYR IVP (13:46)
[2024-10-01] MEDS: Omnipaque 350 MG/ML 100 ML BTL IJ (13:46)
[2024-10-01] MEDS: Normal Saline - Diluent 50 ML VIAL IJ (13:46)
[2024-10-01 16:50] VITALS: BP 110/77; PULSE 78; RESP 16; TEMP 36.8; O2SAT 100
== END 2024-10-01 16:50 | disposition home or self-care (01) ==
PROVIDERS: Emergency Provider Physician Assistant; PCP Nurse Practitioner Family
DX: J03.90 Acute tonsillitis, unspecified (principal)
CPT/HCPCS: 36415; 70491; 80053; 87040; 87880; 96365; 96366; 96368; 96375; 99284; 83605; 85025; 86140; 87081; J0131; J0737; J1885; J2919; J3490

== ENCOUNTER 2024-11-11 07:57 | Day surgery (SDC) | payer OTHER, SELFPAY ==
--- NOTE | 2024-11-10 12:12 | W.ANESPRE ---
General Info Date of Service Date Performed: 11/11/24 Height: 5 ft 7 in Weight: 63.049 kg Body Mass Index (BMI): 21.7 Surgical Procedure: Operation Date: 11/11/24 10:10 Proposed Procedure Side Surgeon p Tonsillectomy Chuy Lima MD Meds Allergies and Home Medications Allergies Allergy/AdvReac Type Severity Reaction Status Date / Time amoxicillin (Amoxicillin) Allergy Mild rash/unknown/family Verified 11/11/24 08:23 hx Home Medication ?Medication ?Instructions ?Recorded levonorgestrel 17.5 mcg/24 hr (up 1 device intrauterine ONCE #1 ea 05/13/21 to 5 yrs) 19.5mg intrauterine device (Kyleena) acetaminophen 500 mg tablet 1,000 mg PO Q6H PRN 11/07/21 triamcinolone acetonide 0.1 % 1 applic topical BID #30 grams 12/12/23 topical cream fluconazole 150 mg tablet 150 mg PO ONCE #3 tabs 11/06/24 Current Visit Medications: Current Medications Generic Name Dose Route Start Last Admin Trade Name Freq PRN Reason Stop Dose Admin Ringer's Solution 1,000 mls @ 50 mls/hr 11/11/24 06:00 IV 11/11/24 23:59 INFUSION KIANNA Tranexamic Acid/Sodium Chloride 1,000 mg in 100 mls @ 600 mls/hr 11/11/24 06:00 IVPB 11/11/24 23:59 PREOP KIANNA Clindamycin Phosphate/Dextrose 900 mg in 50 mls @ 50 mls/hr 11/11/24 06:00 Cleocin In D5w IVPB 11/11/24 23:59 .PREMIX KIANNA IV Miscellaneous Supplies 1 each 11/11/24 06:00 Iv Access IV 11/11/24 23:59 DIRECTED KIANNA Sodium Chloride 0 ml 11/11/24 06:00 Normal Saline Flush 10 Ml Syr IV 11/11/24 23:59 PRN PRN Sodium Chloride 0 ml 11/11/24 06:00 Normal Saline 10 Ml Vial IJ 11/11/24 23:59 DIRECTED PRN Sterile Water 0 ml 11/11/24 06:00 Water,Injection,Sterile 10 Ml Vial IJ 11/11/24 23:59 DIRECTED PRN PFSH Active Problems Active Problems: Problem Status Onset Code Chronic tonsillitis Acute J35.01 Abscess, peritonsillar Acute J36 Acute tonsillitis Acute J03.90 Thoughts of self harm Acute R45.89 Anxiety Chronic F41.9 Allergic rhinitis Acute J30.9 Medical History Medical History IUD (intrauterine device) in place 04/2021. Kyleena. Contraception 12/2019. Nexplanon inserted. 04/2020. Nexplanon removed. OCPs started. 04/2021. OCP stopped. Kyleena IUD inserted Abnormal uterine bleeding (AUB) 2mo after insertion 6w of daily bleeding. Acute otitis media of left ear in pediatric patient Strep throat has frequently over the years Surgical History Surgical History Hx of tooth extraction Tobacco Smoking/Tobacco Use Status: Former Tobacco Use Passive smoking exposure: No Second hand exposure: Yes Alcohol Alcohol Intake: current Alcohol intake frequency: a few times a week Alcohol type: beer Substance Use Substance use: Socially Substance use type: marijuana Prental History History 0 Para Hx # Term Pregnancies Multiple births Hx # Pregnancies Ectopic pregnancies AB induced Hx Number of Living Children AB spontaneous Vital Signs and Lab Results Vital Signs Most Recent Vital Signs in EMR: Pulse Resp BP Pulse Ox 63 17 109/70 98 11/11/24 08:20 11/11/24 08:20 11/11/24 08:20 11/11/24 08:20 Anesthesia Assessment and Plan Anesthesia History Personal History: No History of Anesthesia Complications Family History: No Family History of Anesthesia Complications Exercise Tolerance Exercise Tolerance: Metabolic Equivalents>4 Cardiac & Pulmonary Exam Cardiac Exam: Normal S1/S2 Heart Sounds Pulmonary Exam: Clear Bilateral Breath Sounds Implantable Cardiac Device Does patient have a Pacemaker or an ICD?: No Airway Exam Known Difficult Airway: No Mallampati Class: 2 Mouth Opening: Normal (> 3cm) Thyromental Distance: Greater than 3 cm Neck Range of Motion: Full ROM Neck Circumference: Normal Teeth Condition: Normal Dentition ASA Classification ASA Score: ASA 2 Emergency Case?: No NPO Status NPO Status: NPO Clears >2 hours, Solids >8 hours Status Status: Negative HCG Anesthesia Plan Resuscitation Status: Full Code Anesthesia Technique: General Anesthesia Airway Planned: Endotracheal Tube Monitors Used: Standard Monitors Preoperative Comments:: 19 yo for T/A Sig PMHx: exercise induced asthma (rare albuterol, anxiety.
[2024-11-11] VITALS (12 sets, daily range): BP systolic 95–124; BP diastolic 52–83; PULSE 59–79; RESP 10–20; TEMP 36.4–36.7; O2SAT 97–100; BMI 21.7
[2024-11-11] MEDS: Lactated Ringers 1,000 ML 50 ML IV (08:35)
--- NOTE | 2024-11-11 09:44 | W.PM.OP ---
Operative Note Operative Note PRE-OP DIAGNOSIS: Chronic tonsillitis, history of peritonsillar abscess POST-OP DIAGNOSIS: same PROCEDURE: Tonsillectomy SURGEON: Chuy Lima ANESTHESIA TYPE: General LMA/ETT Refer to Anesthesia Record ESTIMATED BLOOD LOSS: 50 PATHOLOGY: other (Tonsils) COMPLICATIONS: None Patient was transported to: PACU Patient's condition: stable Indications: Patient with a history of peritonsillar abscess and recurring sore throats. Options were explained to family regarding further management. She elected undergo the above procedure. Consent was filled out and signed prior to the procedure. H&P was reviewed. There have been no changes. All questions were answered prior to surgery. The risks of narcotics were discussed again. Findings: Significant scar tissue between the tonsil and the tonsillar fossa bilaterally. No evidence of persistent peritonsillar abscess. Palate intact to inspection and palpation. Atrophic adenoids Procedure Description: After obtaining an adequate level of general endotracheal anesthesia the patient was positioned in a supine position and prepped and draped in appropriate fashion. A Colleen Bronson mouthgag was carefully introduced into the oral cavity and opened to reveal the soft and hard palate which were examined revealing no evidence of an occult cleft palate. Each tonsil was pulled medially and posteriorly and 0.5% Marcaine with 1/200,000 epinephrine was injected into the submucosal planes around each tonsil. Each tonsil was again pulled medially and posteriorly and a 12 blade used to incise mucosa along the superior, anterior, and posterior edges of the tonsil. A Suzan elevator was used to disarticulate the tonsil from the superior tonsillar fossa and then a Green blade used to carefully strip the tonsil free from the tonsillar fossa down to the inferior pole at which point, tonsillar snare was used to amputate the tonsil from the tonsillar fossa. Once been accomplished bilaterally, electrocautery suction tip catheter was used on 15 W coagulation to achieve hemostasis. Valsalva failed to induce further bleeding. Relaxing and reopening the mouthgag failed to induce any further bleeding. As such, the mouthgag was relaxed and removed and the patient was awakened and extubated by anesthesia and taken the recovery room in stable condition. I was present throughout the entire case. Date of Procedure: 11/11/24
--- NOTE | 2024-11-11 09:45 | PDOC.DSDIS_ITS ---
Date of service: 11/11/24 Discharge Plan Disposition Patient Disposition: Home Condition: Good Discharge Details Reason For Visit: Tonsillectomy Attending Provider: Chuy Lima Primary Care Provider: Alonzo Rodriguez Home Meds and New Rx's Prescriptions: No Action triamcinolone acetonide 0.1 % cream 1 applic topical BID Qty: 30 0RF Kyleena 17.5 mcg/24 hrs (5 yrs) 19.5 mg intrauterine device 1 device intrauterine ONCE Qty: 1 0RF Rx Instructions: as a single dose fluconazole 150 mg tablet 150 mg PO ONCE Qty: 3 1RF acetaminophen 500 mg Tablet 1,000 mg PO Q6H PRN Discharge Instructions Additional Instructions: My cell phone number is [phone]. Please call with any questions or concerns. If you are unable to reach me and you feel it is an emergency, please proceed to the emergency room or call 911 If you fill the prescription for narcotics, please also obtain a Narcan. Stand Alone Forms: Anesthesia Discharge Inst., Malu Wagner (DSU), ENT- T&A Instr. Janie Referrals: Chuy Lima MD [ [facility] STAFF PHYSICIAN, ENT Surgical] - 12/09/24 3:00 pm Discharge Orders Discharge Orders: Discharge Order (Routine); Ordered 11/11/24 Ordered By: Chuy Lima
[2024-11-11] MEDS: CLINDAMYCIN 900 MG/50 ML BAG 50 MG IVPB (10:19)
[2024-11-11] MEDS: TRANEXAMIC ACID/SOD. CHL. 1,000 MG/100 ML BAG 600 MG IVPB (10:31)
[2024-11-11] MEDS: Bupivacaine 0.5% Pres-Free W/EPI 10 ML VIAL (10:34)
--- NOTE | 2024-11-11 10:37 | TONSIL_PTH ---
PATIENT: [facility] LOC: [facility] U#:[id number] AGE/SX: 19/F ROOM: RE11/11/[address]: Chuy Lima MD : 2005 BED: DIS: 11/11/2024 SPEC #: [id number] RECD: 11/11/24 12:55 STATUS: CHELSIE REQ #: [id number] MATTIE: 11/11/24 10:[address]: Chuy Lima DEPT: Surgical Specimen RECD BY: Sophie Hassan ENTERED: 11/11/24 12:55 SP TYPE: TONSIL OTHR DR: Alonzo Higgins DNP Tissues: 1 - TONSIL AGE 17 & OVER 2 - TONSIL AGE 17 & OVER Procedures: GROSS AND MICRO LEVEL 3 Comments: [id number]
--- NOTE | 2024-11-11 11:42 | W.ANESPOSTOP ---
Postoperative Evaluation Date, Time and Location Date Performed: 11/11/24 Time Performed: 11:42 Patient Location: PACU Vital Signs Most Recent Imported Vital Signs: Most Recent Vital Signs Temp Pulse Resp BP Pulse Ox 36.4 C L 77 17 116/77 99 11/11/24 11:32 11/11/24 11:17 11/11/24 11:17 11/11/24 11:17 11/11/24 11:17 Pain Score Most Recent Pain Score: Most Recent Pain Score Pain Level 0 11/11/24 11:37 Assessment Mental Status: Arousable with meaningful communication Airway and Respiratory Function: Patent airway with normal (patient baseline) respiratory exam Cardiovascular Function: Hemodynamically Stable Hydration Status: Adequately Hydrated Nausea & Vomiting: No Nausea or Vomiting Pain: Pain is tolerable per patient Peripheral Nerve Block: Patient did not receive a nerve block
[2024-11-11] MEDS: Ibuprofen 100 MG/5 ML CUP 600 MG PO (12:22)
== END 2024-11-11 13:25 | disposition home or self-care (01) ==
PROVIDERS: PCP Nurse Practitioner Family; Visit Provider Otolaryngology
PROC: (CPT 42826; principal; 2024-11-11 10:00)
DX: J35.01 Chronic tonsillitis (principal)
CPT/HCPCS: 42826; 81025; 88304; J0131; J0737; J1100; J2250; J2405; J2704; J3010; J3475

== ENCOUNTER 2024-12-30 15:38 | Outpatient (REF) | payer OTHER, SELFPAY ==
[2025-01-02 13:27] LABS: Chlamydia Result Negative (Negative); GC Result Negative (Negative)
== END 2024-12-30 15:39 | disposition home or self-care (01) ==
LOC: LBN 15:38
PROVIDERS: PCP Nurse Practitioner Family; Visit Provider Obstetrics & Gynecology
DX: R30.0 Dysuria (principal); Z11.3 Encounter for screening for infections with a predominantly sexual mode of transmission; N89.8 Other specified noninflammatory disorders of vagina
CPT/HCPCS: 87491; 87591; 87086; 87480; 87510; 87660

== ENCOUNTER 2024-12-30 15:44 | Outpatient (CLI) | payer OTHER, SELFPAY ==
[2024-12-31 19:08] LABS: Hepatitis A Antibody IgM Negative (Negative); Hepatitis C Ab w Rflx HCV PCR Negative (Negative)
[2025-01-01 01:00] LABS: HIV-1/2 Ag & Ab Screen Negative (Negative)
[2025-01-01 11:16] LABS: Syphilis Serology (RPR) Negative (Negative)
== END 2024-12-30 15:45 | disposition home or self-care (01) ==
LOC: LBO 15:49
PROVIDERS: PCP Nurse Practitioner Family; Visit Provider Obstetrics & Gynecology
DX: Z11.3 Encounter for screening for infections with a predominantly sexual mode of transmission (principal)
CPT/HCPCS: 36415; 86704; 86709; 86803; 87340; 87389; 86592

== ENCOUNTER 2025-01-31 12:21 | Outpatient (REF) | payer OTHER, SELFPAY | END 2025-01-31 12:22 | disposition home or self-care (01) | LOC: LBN 12:21 | PROVIDERS: PCP Nurse Practitioner Family; Visit Provider Advanced Practice Midwife | DX: N89.8 Other specified noninflammatory disorders of vagina (principal) | CPT/HCPCS: 87480; 87510; 87660 ==